=== PATIENT | female | born 1945 | race Caucasian/White ===

== ENCOUNTER 2017-09-12 21:54 | Inpatient (IN) | payer MEDICARE, OTHER, SELFPAY ==
[2017-09-12 21:56] VITALS: BP 118/67; PULSE 105; RESP 20; TEMP 36.6; O2SAT 92; BMI 35.7
--- NOTE | 2017-09-12 22:17 | RAD_ITS ---
STUDY: X-RAY - LEFT FOOT CLINICAL: Female, 72 years old. Swelling and redness. TECHNIQUE: 3 view(s) of the foot. COMPARISON: None. FINDINGS: There is demineralization of the rear and midfoot bones. Demineralized subtalar, talonavicular, calcaneocuboid, tarsal and tarsometatarsal articulations. There is demineralization of the metatarsi. There is degenerative arthrosis of the metatarsophalangeal joint of the hallux with a hallux valgus deformity. Normal tibial and fibular sesamoid bones. There is degenerative arthrosis of the interphalangeal joint of the great toe. Normal phalanges of the great toe. Normal second through fifth metatarsophalangeal joints. Normal interphalangeal joints and phalanges of the lesser toes. The soft tissue structures are unremarkable. RAD/Foot min 3 Views IMPRESSION: Diffuse demineralization with hallux valgus deformity and arthrosis. Electronically Signed: Benjamín Vera DO at 22:53 EDT , Service support ,
--- NOTE | 2017-09-12 22:17 | RAD_ITS ---
STUDY: X-RAY - RIGHT FOOT CLINICAL: Female, 72 years old. Swelling and redness. TECHNIQUE: 3 view(s) of the foot. COMPARISON: None. FINDINGS: There is demineralization of the rear and midfoot bones. Normal visualized subtalar, talonavicular, calcaneocuboid, tarsal and tarsometatarsal articulations. There is demineralization of the metatarsi. There is degenerative arthrosis of the metatarsophalangeal joint of the hallux with a hallux valgus deformity. Normal tibial and fibular sesamoid bones. There is degenerative arthrosis of the interphalangeal joint of the great toe. Demineralized phalanges of the great toe. Normal second through fifth metatarsophalangeal joints. Normal interphalangeal joints and phalanges of the lesser toes. The soft tissue structures are unremarkable. RAD/Foot min 3 Views IMPRESSION: Diffuse demineralization and hallux valgus deformities with no evidence of acute fracture. Electronically Signed: Benjamín Vera DO at 22:55 EDT , Service support ,
[2017-09-12 22:55] LABS: Absolute Lymphocyte Count 2.45 X10^3/ul (0.83-4.51); Absolute Neutrophil Count 6.6 X10^3/uL (2.0-7.7); Basophil# 0.06 X10^3/uL; Basophil% 0.6 % (0-1); Eosinophil# 0.04 X10^3/uL; Eosinophils% 0.4 % (0-5); Hematocrit 38.1 % (37-47); Lymphocyte # 2.45 X10^3/ul (4.0); Mean Corp Hgb Conc 31.5 g/gl (32-36); Mean Corpuscular Hgb 31.7 pg (27.0-32.0); Mean Corpuscular Volume 100.5 fL (81-99); Mean Platelet Vol. 8.6 fl (6.2-12.0); Monocyte# 1.42 X10^3/uL; Monocyte% 13.4 % (0-10); Neutrophil # 6.57 X10^3/uL (2.7-7.7); Neutrophil % 61.8 % (47-70); Platelet Count 367 K/mm3 (150-450); RBC Distribution Width CV 15.1 % (11.6-14.6); Red Blood Count 3.79 M/mm3 (4.2-5.4); White Blood Count 10.6 K/mm3 (4.4-11.0)
[2017-09-12 22:56] LABS: POSITIVE COUNT NO; POSITIVE DIFFERENTIAL NO; POSITIVE MORPHOLOGY NO
[2017-09-12 23:08] LABS: Anion Gap 8 (5-15); BUN 24 mg/dL (7-18); Calcium,Total 7.9 mg/dL (8.5-10.1); Chloride 99 mmol/L (98-107); EST Glomerular Filtration Rate 36 mL/min (>60); Est Glom Filt Rate - Afr Amer 44 mL/min (>60); Estimated Creatinine Clearance 43.05 ml/min; Glucose 97 mg/dL (74-106); Potassium 4.4 mmol/L (3.5-5.1); Sodium Level 141 mmol/L (136-145)
[2017-09-13] VITALS (17 sets, daily range): BP systolic 100–124; BP diastolic 58–74; PULSE 71–111; RESP 16–20; TEMP 36.4–36.9; O2SAT 90–95; BMI 37.1
--- NOTE | 2017-09-13 00:03 | ED.RN ---
PT C/O PAIN AND TOOK HOME TRAMADOL OF 50MG PO. DR. NICHOLE WAS OKAY WITH PT TAKING HOME PAIN MEDICATION.
[2017-09-13] MEDS: 0.9% Normal Saline 1,000 ML 100 ML IV (00:05)
--- NOTE | 2017-09-13 00:09 | ED.DCSUM_ITS ---
- ER Visit Summary Date of Service: 09/13/17 Chief Complaint: Leg edema and redness History of Present Illness: The patient is a 72 F with a history of chronic peripheral vascular disease. She states that she has leg swelling but normally improves with diuretics, but has not been recently. Patient has noted decreased urine output in spite of being on Lasix and Spironolactone. Patient has a large blistered wound on her right foot. Patient states she is to follow up with wound care center in [place] as well as a whiting can worker in [place]. Patient presents tonight with increased pain to her feet, worse with weightbearing. Patient was admitted to in [place] August 09. I was able to review that discharge note. Physical Examination: Vital signs significant only for heart rate of 105. Patient sitting upright in bed. She is alert and talkative. Head neck examination unremarkable. Heart is slightly tachycardic. Lung sounds are slightly diminished at the bases, but overall clear. Abdomen is soft, obese, nontender. Lower extremity examination reveals 2+ edema bilaterally with chronic venous skin changes. There is no significant warmth or sign of acute infection. She has a large, 4 x 6 cm, blister across the dorsum of the right foot. Test Results: CBC and chemistry studies are significant for BUN 24 a creatinine of 1.50. This is compared to a creatinine of 0.88 on August 27. X-rays of both feet were performed. There is diffuse demineralization noted with no evidence of acute fracture. Emergency Department Course and Treatment: Patient took her home dose of tramadol for pain. She is started on gentle IV fluids as it appears she has acute renal insufficiency secondary to overdiuresis. INR will be added at this time, as patient now advises me that she is on Coumadin. She will be admitted for wound care along with podiatry evaluation. Treatment Plan: [] Disposition: Admit Impression: 1. Acute renal insufficiency 2. Right foot wound This note was generated with Eayun dictation software. It may contain incorrect words, spelling, and punctuation that were not noted in review of the chart prior to signing ED Disposition - Plan for ED Patient: Chief Complaint: Edema Referrals: Mkio Navarro MD [Primary Care Provider] -
[2017-09-13 00:34] LABS: International Normalized Ratio 4.9
--- NOTE | 2017-09-13 00:34 | ED.RN ---
LAB CALLED FOR INR RESULT, INR OF 4.9 DR. NICHOLE NOTIFIED FACE TO FACE, NO ORDERS GIVEN.
--- NOTE | 2017-09-13 01:25 | HP.PCM_ITS ---
Problem List (1) Acute kidney injury Status: Acute (2) Venous stasis Status: Acute (3) Wound of right foot Status: Acute (4) Atrial fibrillation Status: Acute (5) CHF (congestive heart failure) Status: Chronic (6) COPD (chronic obstructive pulmonary disease) Status: Chronic History of Present Illness Date of Admission: 09/13/17 Chief Complaint: Right leg swelling. The patient is a 72 year old F with a significant history of COPD, CHF, atrial fibrillation on warfarin therapy, diabetes, and chronic venostasis who presented because of persistent swelling of bilateral legs and wound on her right dorsal foot for the last 1-2 months. Prior to this admission patient had visited two hospitals a [facility] in [place] and [facility]. Patient was scheduled to come to our wound clinic but because of persistent pain and swelling in her bilateral legs she decided to come to the emergency department. Also, patient reports that although she is taking her Lasix and Aldactone, she is not urinating as much as she used to do previously. At emergency department it was noted that the patient had a severe elevation in her creatinine above her baseline. Past Medical History Past Medical History (Chronic Problems): Chronic Problems CHF (congestive heart failure) (Chronic) COPD (chronic obstructive pulmonary disease) (Chronic) Allergies cefaclor [From Ceclor] Allergy (Verified 09/12/17 21:55) Other gentamicin Allergy (Verified 09/12/17 21:55) Rash lorazepam [From Ativan] Allergy (Verified 09/12/17 21:55) Anaphylaxis Home Medications: Ambulatory Orders Medication Instructions Recorded Albuterol Aerosols [Ventolin 2.5 mg INHALATION Q4H PRN PRN 09/12/17 Aerosols] Albuterol IH (ProAir) [Proair Hfa 1 puff INHALATION Q4H PRN PRN 09/12/17 (SP)Vent Pts] Budesonide/Formoterol 160/4.5 2 puff INHALATION BID PRN 09/12/17 [Symbicort 160/4.5 Mcg Inhaler (SP)] Calcium Phos/Vit D3/Mag Oxide 1 each PO DAILY 09/12/17 [Posture-D Caplet] Diltiazem HCl [Diltiazem ER] 240 mg PO DAILY 09/12/17 DiphenhydrAMINE [Benadryl] 25 mg PO BID PRN PRN 09/12/17 Furosemide [Lasix] 40 mg PO BID 09/12/17 Guaifenesin [Mucinex] 1,200 mg PO DAILY 09/12/17 Levothyroxine [Synthroid] 88 mcg PO DAILY 09/12/17 Metformin HCl 500 mg PO DAILY 09/12/17 Metoprolol Tartrate 50 mg PO TID 09/12/17 Omeprazole [Prilosec] 20 mg PO DAILY 09/12/17 Potassium Chloride 20 meq PO BID 09/12/17 Pravastatin [Pravachol] 20 mg PO QHS 09/12/17 Spironolactone 25 mg PO DAILY 09/12/17 Tylenol Arthritis 650 mg PO PRN PRN 09/12/17 traMADol [Ultram (G)] 50 mg PO Q4H PRN PRN 09/12/17 Warfarin [Coumadin ([facility])] 2 mg PO QODAY 09/13/17 Warfarin [Coumadin ([facility])] 4 mg PO QODAY 09/13/17 Smoking Status: Former smoker - *Family History Paternal History Items: COPD Maternal History Items: Heart Disease, Hypertension Review of Systems Constitutional: Denies: Chills, Fever, Weight Change HEENT: Denies: Head Aches, Sinus Congestion, Sinus Drainage Cardiovascular: Denies: Chest Pain, Palpitations Respiratory: Reports: Shortness of Breath Gastrointestinal: Denies: Abdominal Pain, Nausea, Vomiting Genitourinary: Denies: Dysuria Musculoskeletal: Reports: Leg Pain - Bilateral leg pain and foot pain. Skin: Reports: - - Blistered wound on right dorsal foot; redness and swelling of bilateral legs. Neurological: Denies: Numbness, Tingling, Focal weakness Psychiatric: Denies: Anxiety, Depression, Homicidal Ideations, Suicidal Ideations Hematologic/ Lymphatic: Denies: Easy Bruising, Easy Bleeding VTE Information - Inpt Only VTE Present on Admission: No VTE Mechan Device Prophylaxis: None VTE Pharm Prophylaxis ordered?: No Reason prophylaxis not ordered:: Medical Contraindication Patient Problems: Active and Suspected Problems Acute kidney injury (Acute) Venous stasis (Acute) Wound of right foot (Acute) Atrial fibrillation (Acute) - Physical Exam General: Alert, Oriented x3, Cooperative HEENT: Atraumatic, PERRLA, EOMI, Normocephalic Neck: Supple, No JVD, Negative Carotid Bruits Lungs: Diminished, Rhonchi Cardiovascular: Regular rate Abdomen: Bowel Sounds Present, Soft, Non Tender Extremities: Edema - Bilateral lower extremity, Tenderness - Bilateral lower extremity tenderness., - Skin: - - Redness of bilateral lower extremity and blister wound on dorsal aspect of right foot. Musculoskeletal: Tenderness - Bilateral lower extremities. Lymphatic: No Cervical, Supraclavicular, or Inguinal Adenopathy Neurological: Cranial nerves II-XII grossly intact Psych/Mental Status: Appropriate Vital Signs Temp Pulse Resp BP Pulse Ox 97.9 F 71 20 H 120/74 95 09/12/17 21:56 09/13/17 00:05 09/13/17 00:05 09/13/17 00:05 09/13/17 00:05 Oxygen Delivery Method Room Air Weight: 81.647 kg Body Mass Index (BMI) 35.7 Laboratory Tests Past 24 Hrs 09/12/17 09/12/17 09/13/17 22:20 22:29 00:02 WBC 10.6 RBC 3.79 L Hgb 12.0 Hct 38.1 MCV 100.5 H MCH 31.7 MCHC 31.5 L RDW 15.1 H RDW Differential 55.0 H Plt Count 367 MPV 8.6 Immature Gran % (Auto) 0.800 Neut % (Auto) 61.8 Lymph % (Auto) 23.0 [place] % (Auto) 13.4 H Eos % (Auto) 0.4 Baso % (Auto) 0.6 Absolute Neuts (auto) 6.6 Absolute Lymphs (auto) 2.45 Total Counted Not Reportable PT 46.0 H INR 4.9 H* Sodium 141 Potassium 4.4 Chloride 99 Carbon Dioxide 34.0 H Anion Gap 8 BUN 24 H Creatinine 1.50 H Estim Creat Clear Calc 43.05 Est GFR (MDRD) Af Amer 44 L Est GFR (MDRD) Non-Af 36 L BUN/Creatinine Ratio 16.0 Glucose 97 Calcium 7.9 L Assessment/Plan All Active Problems Acute kidney injury (Acute) Venous stasis (Acute) Wound of right foot (Acute) Atrial fibrillation (Acute) The patient is a 72 year old F with a significant history of COPD, CHF, atrial fibrillation on warfarin therapy, diabetes, and chronic venostasis who presented because of persistent swelling of bilateral legs and wound on her right dorsal foot for the last 1-2 months. Bilateral lower extremity swelling Likely this is from venous stasis Diuretics on hold now due to acute kidney injury Kerlix roll and neil wraps to bilateral lower extremity. Elevates bilateral legs. Wound care consult for further recommendations Podiatry consult. XOCHILT Her creatinine on admission was 1.5 Her creatinine on 08/27/2017 was 0.88 Likely this is due to overdiuresis Lasix and spironolactone on hold Gentle fluid hydration. Of note patient reports a history of CHF. Judicial use of fluid recommended. Avoid nephrotoxic. Patient was started on Bactrim outpatient prophylactically to prevent infection of her right foot. Because of her acute kidney injury would discontinue Bactrim at this time; and will not start any antibiotics at this time. Antibiotics not started at this time. Home Ultram dose adjusted because of acute kidney injury. COPD DuoNeb scheduled Albuterol inhalation as needed Mucinex continued. Diabetes mellitus Hold metformin discontinued until it is cleared the patient while inpatient will not need any imaging with diet. Correction scale insulin ordered. A. fib Rate controlled at this time. Placed on telemetry. Patient stated that outpatient INR was elevated (between 5 and 8 ) requiring her Coumadin to be on hold. INR on admission 4.9. Will hold Coumadin at this time. Daily INR. Please restart Coumadin when appropriate. Continue Cardizem and metoprolol. Thromboprophylaxis Not indicated at this time because of supratherapeutic INR. Resume Coumadin when appropriate. This note was prepared with speech recognition software and may be prone to errors in eye dropper assembler. Code Visit Inpatient E&M: 74091 Init Hosp L2
--- NOTE | 2017-09-13 01:33 | NURSING ---
Eulalio sanderson aware pt ok for floor.
[2017-09-13 03:16] LABS: Bedside Glucose 83 mg/dL (70-110)
[2017-09-13] MEDS: traMADol 50 MG Tablet PO ×2 (05:36→14:17)
[2017-09-13] MEDS: Levothyroxine 88 MCG Tablet PO (05:37)
[2017-09-13] MEDS: Metoprolol Tartrate 50 MG Tablet PO ×3 (05:39→22:07)
[2017-09-13 06:02] LABS: Anion Gap 6 (5-15); BUN 23 mg/dL (7-18); BUN/Creat Ratio 19.8 RATIO (10-20); Calcium,Total 7.6 mg/dL (8.5-10.1); Chloride 102 mmol/L (98-107); Creatinine, Serum 1.16 mg/dL (0.55-1.02); EST Glomerular Filtration Rate 49 mL/min (>60); Est Glom Filt Rate - Afr Amer 59 mL/min (>60); Estimated Creatinine Clearance 56.87 ml/min; Glucose 80 mg/dL (74-106); Potassium 4.3 mmol/L (3.5-5.1); Sodium Level 141 mmol/L (136-145)
[2017-09-13 06:56] LABS: Bedside Glucose 79 mg/dL (70-110)
[2017-09-13] MEDS: Budesonide Respules 0.5 MG/2 ML AMPUL.NEB. INHALATION ×2 (06:57→20:35)
[2017-09-13] MEDS: Ipratropium/Albuterol Sulfate 3 ML AMPUL.NEB INHALATION ×3 (06:57→20:35)
[2017-09-13] MEDS: Acetaminophen 325 MG Tablet 650 MG PO ×2 (08:58→17:29)
[2017-09-13] MEDS: 0.9% Normal Saline 1,000 ML 75 ML IV (09:01)
--- NOTE | 2017-09-13 09:15 | CASEMGMT ---
RN MAMADOU Note: Nurse notified CM that pt did not wish to take medications provided by hospital as they will not be covered. RN MAMADOU called to [facility], spoke w/Michelle. Verified as Inpt, medications provided in hospital were covered. BRETT CEDILLO explained to patient and she is agreeable not to take her own medications. Wilfred CARBONE RN ACM
[2017-09-13] MEDS: Glucerna Shake 120 ML LIQUID PO ×3 (11:14→22:08)
[2017-09-13] MEDS: dilTIAZem CD 240 MG Capsule PO (11:14)
[2017-09-13] MEDS: Pantoprazole Sodium 20 MG Tablet PO (11:14)
[2017-09-13 11:21] LABS: Bedside Glucose 118 mg/dL (70-110)
[2017-09-13] MEDS: guaiFENesin 1,200 MG Tablet 1200 MG PO (12:39)
[2017-09-13] MEDS: Calcium Carb/Vitamin D 1 TABLET Tablet PO (12:39)
--- NOTE | 2017-09-13 13:28 | PCM.PROGNOTE ---
Patient Problems: Active and Suspected Problems Acute kidney injury (Acute) Venous stasis (Acute) Wound of right foot (Acute) Atrial fibrillation (Acute) Ulcer of right foot with fat layer exposed (Acute) PVD (peripheral vascular disease) (Acute) DM (diabetes mellitus) with complications (Acute) Subjective: This 72-year-old female was consulted to podiatry after being admitted through the ER last evening for pain and some redness to the right lower extremity and blister to the right dorsal foot. Patient was resting comfortably bedside this afternoon with daughter in the room. Patient said she had no issues throughout the evening and is feeling much better today in the area to her lower extremity is not painful any longer. She relates that the blister to the right dorsal foot was being treated by her primary care doctor. She says the area his been getting smaller over the course of the last month or so. She says her primary care suggested recently that she follow-up with either the wound healing center or a inspector general in [place]. She says that her primary care doctor had her on oral Bactrim prior to admission. She has not done much else treatment danielle other than trying to keep her legs wrapped with Truman bandages. Currently patient denies any feeling of nausea, vomiting, fever, chills. Patient again states that she is feeling well and that she also has an appetite currently. - Physical Exam General: Alert, Oriented x3, Cooperative, No apparent distress Extremities: No cyanosis, No Calf Tenderness - Negative Emily and Arguello sign bilateral, Diminished Peripheral Pulses - DP and PT pulses nonpalpable, Edema - Bilateral pitting lower extremity edema, - - Capillary refill time is less than 5 seconds to distal digits of the right and left foot. Skin: Ulcer/ Wound - Blister appreciated to dorsomedial right foot. Upon manual manipulation, the roof of the blister easily lifted completely off exposing a bite of healthy granular tissue. This is a very superficial ulcer in depth. Area measures approximately 6cm x 5cm. Very minor surrounding erythema noted. No surrounding or extending cellulitis, no areas of deep probing, tracking, or undermining. No purulence. Slight serous drainage noted. Base is majority granular with some slight areas of slough. No signs of acute bacterial infection currently appreciated. Musculoskeletal: Arthritic Changes, Tenderness - Slight tenerness with manipulation of ulcer site, - - Bilateral hallux valgus deformities. Bilateral fixed dorsally contracted digits 2-5 bilateral. Neurological: Sensory exam intact to light touch and pain Psych/Mental Status: Normal Affect, Appropriate Vital Signs Temp Pulse Resp BP Pulse Ox 98.0 F 103 H 18 107/67 94 09/13/17 08:45 09/13/17 08:45 09/13/17 08:45 09/13/17 08:45 09/13/17 08:45 Oxygen Delivery Method Room Air Weight: 83.4 kg Body Mass Index (BMI) 37.1 Intake and Output for Last 24 Hours 09/11/17 09/12/17 09/13/17 23:59 23:59 23:59 Intake Total 270 / 270 Balance 270 / 270 Microbiology Past 72 Hours 09/13/17 11:08 Group A Streptococcus Rapid Screen - Preliminary Mucosa - Throat Laboratory Tests Past 24 Hrs 09/13/17 05:22 Sodium 141 Potassium 4.3 Chloride 102 Carbon Dioxide 33.0 H Anion Gap 6 BUN 23 H Creatinine 1.16 H Estim Creat Clear Calc 56.87 Est GFR (MDRD) Af Amer 59 L Est GFR (MDRD) Non-Af 49 L BUN/Creatinine Ratio 19.8 Glucose 80 Calcium 7.6 L POC Glucose 09/13/17 09/13/17 09/13/17 11:11 06:45 02:54 POC Glucose 118 H 79 83 Medical Necessity - Tobacco Use Smoking Status: Former smoker Assessment/Plan All Active Problems Acute kidney injury (Acute) Venous stasis (Acute) Wound of right foot (Acute) Atrial fibrillation (Acute) Ulcer of right foot with fat layer exposed (Acute) PVD (peripheral vascular disease) (Acute) DM (diabetes mellitus) with complications (Acute) Superficial ulcer dorsal right foot (underlying previous blister) PVD Venous insufficiency DM Other comorbidities Patient was carefully examined and evaluated in detail with daughter in the room. Patients vital signs are currently stable. Last WBC was 10.6. Blood cultures still pending. No wound cultures taken to date. Discussed the case with Dr. Dickey who anticipates patient's discharge at some point tomorrow. She believes due to the patient's clinical appearance as well as vital signs, that no antibiotics are currently warranted. The previous blister was manually deroofed without much pressure applied at all. No bleeding noted. Once complete, the area was carefully cleansed, and then dressed with aquacel ag to the base, followed by 4x4s, ABD over anterior ankle, kerlix, and an TRUMAN bandage. This dressing is to be changed daily in this manner. I spoke with Anna Harrell in the room who told the patient and her daughter that these dressing supplies would be ordered for them upon discharge. The patient already has an appointment at the wound healing center next . She was instructed to keep this appointment. Podiatry will continue to follow this patient as needed while still in house. Please contact with any questions or concerns.
--- NOTE | 2017-09-13 13:39 | PN_ITS ---
Patient Problems: Active and Suspected Problems Acute kidney injury (Acute) Venous stasis (Acute) Wound of right foot (Acute) Atrial fibrillation (Acute) Ulcer of right foot with fat layer exposed (Acute) PVD (peripheral vascular disease) (Acute) DM (diabetes mellitus) with complications (Acute) Subjective: This 72-year-old female was consulted to podiatry after being admitted through the ER last evening for pain and some redness to the right lower extremity and blister to the right dorsal foot. Patient was resting comfortably bedside this afternoon with daughter in the room. Patient said she had no issues throughout the evening and is feeling much better today in the area to her lower extremity is not painful any longer. She relates that the blister to the right dorsal foot was being treated by her primary care doctor. She says the area his been getting smaller over the course of the last month or so. She says her primary care suggested recently that she follow-up with either the wound healing center or a finisher map and chart in [place]. She says that her primary care doctor had her on oral Bactrim prior to admission. She has not done much else treatment danielle other than trying to keep her legs wrapped with Truman bandages. Currently patient denies any feeling of nausea, vomiting, fever, chills. Patient again states that she is feeling well and that she also has an appetite currently. - Physical Exam General: Alert, Oriented x3, Cooperative, No apparent distress Extremities: No cyanosis, No Calf Tenderness - Negative Emily and Arguello sign bilateral, Diminished Peripheral Pulses - DP and PT pulses nonpalpable, Edema - Bilateral pitting lower extremity edema, - - Capillary refill time is less than 5 seconds to distal digits of the right and left foot. Skin: Ulcer/ Wound - Blister appreciated to dorsomedial right foot. Upon manual manipulation, the roof of the blister easily lifted completely off exposing a bite of healthy granular tissue. This is a very superficial ulcer in depth. Area measures approximately 6cm x 5cm. Very minor surrounding erythema noted. No surrounding or extending cellulitis, no areas of deep probing , tracking, or undermining. No purulence. Slight serous drainage noted. Base is majority granular with some slight areas of slough. No signs of acute bacterial infection currently appreciated. Musculoskeletal: Arthritic Changes, Tenderness - Slight tenerness with manipulation of ulcer site, - - Bilateral hallux valgus deformities. Bilateral fixed dorsally contracted digits 2-5 bilateral. Neurological: Sensory exam intact to light touch and pain Psych/Mental Status: Normal Affect, Appropriate Vital Signs Temp Pulse Resp BP Pulse Ox 98.0 F 103 H 18 107/67 94 09/13/17 08:45 09/13/17 08:45 09/13/17 08:45 09/13/17 08:45 09/13/17 08:45 Oxygen Delivery Method Room Air Weight: 83.4 kg Body Mass Index (BMI) 37.1 Intake and Output for Last 24 Hours 09/11/17 09/12/17 09/13/17 23:59 23:59 23:59 Intake Total 270 / 270 Balance 270 / 270 Microbiology Past 72 Hours 09/13/17 11:08 Group A Streptococcus Rapid Screen - Preliminary Mucosa - Throat Laboratory Tests Past 24 Hrs 09/13/17 05:22 Sodium 141 Potassium 4.3 Chloride 102 Carbon Dioxide 33.0 H Anion Gap 6 BUN 23 H Creatinine 1.16 H Estim Creat Clear Calc 56.87 Est GFR (MDRD) Af Amer 59 L Est GFR (MDRD) Non-Af 49 L BUN/Creatinine Ratio 19.8 Glucose 80 Calcium 7.6 L POC Glucose 09/13/17 09/13/17 09/13/17 11:11 06:45 02:54 POC Glucose 118 H 79 83 Medical Necessity - Tobacco Use Smoking Status: Former smoker Assessment/Plan All Active Problems Acute kidney injury (Acute) Venous stasis (Acute) Wound of right foot (Acute) Atrial fibrillation (Acute) Ulcer of right foot with fat layer exposed (Acute) PVD (peripheral vascular disease) (Acute) DM (diabetes mellitus) with complications (Acute) Superficial ulcer dorsal right foot (underlying previous blister) PVD Venous insufficiency DM Other comorbidities Patient was carefully examined and evaluated in detail with daughter in the room. Patients vital signs are currently stable. Last WBC was 10.6. Blood cultures still pending. No wound cultures taken to date. Discussed the case with Dr. Dickey who anticipates patient's discharge at some point tomorrow. She believes due to the patient's clinical appearance as well as vital signs, that no antibiotics are currently warranted. The previous blister was manually deroofed without much pressure applied at all. No bleeding noted. Once complete , the area was carefully cleansed, and then dressed with aquacel ag to the base , followed by 4x4s, ABD over anterior ankle, kerlix, and an TRUMAN bandage. This dressing is to be changed daily in this manner. I spoke with Anna Harrell in the room who told the patient and her daughter that these dressing supplies would be ordered for them upon discharge. The patient already has an appointment at the wound healing center next . She was instructed to keep this appointment. Podiatry will continue to follow this patient as needed while still in house. Please contact with any questions or concerns.
--- NOTE | 2017-09-13 13:39 | NURSING ---
wound photo: right foot
--- NOTE | 2017-09-13 13:40 | NURSING ---
wound photo: right knee
--- NOTE | 2017-09-13 13:40 | NURSING ---
wound photo: left leg
--- NOTE | 2017-09-13 13:56 | PCM.PROGNOTE ---
<Tra Arias - Last Filed: 09/13/17 13:56> Patient Problems: Active and Suspected Problems DM (diabetes mellitus) with complications (Acute) Acute kidney injury (Acute) Venous stasis (Acute) Wound of right foot (Acute) Atrial fibrillation (Acute) Ulcer of right foot with fat layer exposed (Acute) PVD (peripheral vascular disease) (Acute) Subjective: Pt resting comfortably in bed no acute issues. Legs are down. Edema is unchanged. IV fluids running, lasix held. No SOB. Her primary complaint to me is her sore throat and productive cough - yellow green mucus. No fever or chills. - Physical Exam General: Alert, Oriented x3, Cooperative HEENT: Atraumatic, PERRLA, EOMI, Normocephalic Oral: - - soft palate exudates. Neck: Supple, No JVD, Negative Carotid Bruits Lungs: Rales Cardiovascular: Regular rate, No murmurs Abdomen: Bowel Sounds Present, Soft, Non Tender Extremities: Capillary Refill Less than 3 Seconds, Edema - 1+ pitting Skin: No rashes, No breakdown Musculoskeletal: No Tenderness to Palpation of Joints or Extremities Neurological: Cranial nerves II-XII grossly intact Psych/Mental Status: Normal Affect, Appropriate, Alert and oriented to time, place, person, mood and affect Vital Signs Temp Pulse Resp BP Pulse Ox 98.0 F 100 18 107/67 94 09/13/17 08:45 09/13/17 11:01 09/13/17 08:45 09/13/17 08:45 09/13/17 08:45 Oxygen Delivery Method Room Air Weight: 183 lb 13.848 oz Body Mass Index (BMI) 37.1 Intake and Output for Last 24 Hours 09/11/17 09/12/17 09/13/17 23:59 23:59 23:59 Intake Total 1158 / 1158 Balance 1158 / 1158 Microbiology Past 72 Hours 09/13/17 11:08 Group A Streptococcus Rapid Screen - Preliminary Mucosa - Throat Laboratory Tests Past 24 Hrs 09/13/17 05:22 Sodium 141 Potassium 4.3 Chloride 102 Carbon Dioxide 33.0 H Anion Gap 6 BUN 23 H Creatinine 1.16 H Estim Creat Clear Calc 56.87 Est GFR (MDRD) Af Amer 59 L Est GFR (MDRD) Non-Af 49 L BUN/Creatinine Ratio 19.8 Glucose 80 Calcium 7.6 L POC Glucose 09/13/17 09/13/17 09/13/17 11:11 06:45 02:54 POC Glucose 118 H 79 83 Medical Necessity - Tobacco Use Smoking Status: Former smoker Assessment/Plan All Active Problems DM (diabetes mellitus) with complications (Acute) Acute kidney injury (Acute) Venous stasis (Acute) Wound of right foot (Acute) Atrial fibrillation (Acute) Ulcer of right foot with fat layer exposed (Acute) PVD (peripheral vascular disease) (Acute) 1. BL LE swelling - chronic venous stasis. Podiatry following. Blister deroofed with new skin growth underneath. Continue compression, elevate legs at rest. Restart lasix tomorrow if renal function ok. Follow up with wound center. Do not suspect infectious etiology. 2. Sore throat + productive cough + exudates. Start amoxicillin. Obtain rapid strep/throat culture. Rales on exam - check CXR. 3. COPD - not sob. PRN aerosols. 4. DMt2 - titrate insulin therapy. 5. Afib - rate controlled. Coumadin held for INR 4.9. trend. DVT ppx: warfarin held as above DC planning: Home tomorrow if renal function improved. This patient was seen by Tra Arias PA-C under the supervision of Doctor Keli. <Celina Dickey - Last Filed: 09/13/17 16:14> - Physical Exam Vital Signs Temp Pulse Resp BP Pulse Ox 98.0 F 92 18 108/64 94 09/13/17 08:45 09/13/17 15:35 09/13/17 15:35 09/13/17 14:17 09/13/17 08:45 Oxygen Delivery Method Room Air Weight: 83.4 kg Body Mass Index (BMI) 37.1 Intake and Output for Last 24 Hours 09/11/17 09/12/17 09/13/17 23:59 23:59 23:59 Intake Total 1158 / 1158 Balance 1158 / 1158 Microbiology Past 72 Hours 09/13/17 11:08 Group A Streptococcus Rapid Screen - Preliminary Mucosa - Throat Laboratory Tests Past 24 Hrs 09/13/17 05:22 Sodium 141 Potassium 4.3 Chloride 102 Carbon Dioxide 33.0 H Anion Gap 6 BUN 23 H Creatinine 1.16 H Estim Creat Clear Calc 56.87 Est GFR (MDRD) Af Amer 59 L Est GFR (MDRD) Non-Af 49 L BUN/Creatinine Ratio 19.8 Glucose 80 Calcium 7.6 L POC Glucose 09/13/17 09/13/17 09/13/17 11:11 06:45 02:54 POC Glucose 118 H 79 83 Assessment/Plan Patient was seen and examined. Agree with the interval history, physical exam, assessment and plan as documented by physician assistant news director, Tra Arias. She feels much improved. Denies any chest pain no dizziness or shortness of breath. Discussed patient's wound with wound nurse and health type technician, skin of blister was deroofed; pink tissue underneath. No signs of infection. No need for antibiotics. Labs and meds reviewed -Serum creatinine has improved with hydration Patient's acute kidney injury has improved with IV fluids, will continue to monitor and repeat labs in the morning. Code Visit Inpatient E&M: 65754 Subs Hosp L2
--- NOTE | 2017-09-13 13:57 | RAD_ITS ---
STUDY: X-RAY CHEST REASON FOR EXAM: Female, 72 years old. Productive cough TECHNIQUE: PA and lateral views of the chest. COMPARISON: None. FINDINGS: EKG leads overlie the chest Lungs are hyperexpanded without a superimposed acute pulmonary process. There is no demonstrated pleural abnormality. Normal size heart. Normal mediastinum and dar. Normal visualized pulmonary arteries. There is atherosclerotic calcification of the aortic arch with tortuosity. There are diffuse degenerative changes of the visualized thoracic spine. There is degenerative osteoarthritis of the bilateral shoulders. There is no demonstrated abnormality of the visualized soft tissue structures of the upper abdomen. RAD/Chest PA and Lateral IMPRESSION: Hyperexpanded lungs with chronic interstitial changes, no superimposed acute pulmonary process Electronically Signed: Serafin Thibodeaux MD at 14:55 EDT , Service support ,
--- NOTE | 2017-09-13 15:16 | CASEMGMT ---
SEE BRETT CEDILLO ASSESS LINK: D/C PLAN: RETURN HOME WITH [facility]. Intro role to BRETT CEDILLO. Pt sitting up in recliner in room. Alert/oriented and willing to participate in assess and answer all questions appropriately. Daughter, Gwen, also in room as well as a couple other family members. Gwen states pt has been receiving [facility] Nursing and OT through [facility] agency. BRETT CEDILLO called to [facility] Agency Intake office in [place] @ [phone] and they confirmed pt is receiving Skilled nsg services and PT/OT. They were made aware pt is currently @ [facility] with anticipated plan for discharge tomorrow 09/14. Clinical information and resume order faxed to . Pt voiced would like to get a Medical Alert Button. Provided List of Phone numbers for Medical Alert Systems. Patti CARBONE RN, CM
[2017-09-13 17:30] LABS: Bedside Glucose 156 mg/dL (70-110)
[2017-09-13] MEDS: Insulin Lispro 100 UNIT/ML INSULN.PEN SQ (17:30)
[2017-09-13] MEDS: Bisacodyl 5 MG Tablet PO (20:46)
[2017-09-13] MEDS: Pravastatin 20 MG Tablet PO (22:07)
[2017-09-13] MEDS: AMOXICILLIN 500 MG CAPSULE PO (22:07)
[2017-09-13 22:15] LABS: Bedside Glucose 130 mg/dL (70-110)
[2017-09-14] VITALS (11 sets, daily range): BP systolic 99–122; BP diastolic 40–61; PULSE 82–99; RESP 16–18; TEMP 36.7–36.8; O2SAT 91–97
[2017-09-14] MEDS: Levothyroxine 88 MCG Tablet PO (05:48)
[2017-09-14] MEDS: Metoprolol Tartrate 50 MG Tablet PO ×2 (05:49→13:58)
[2017-09-14] MEDS: Acetaminophen 325 MG Tablet 650 MG PO ×2 (05:49→12:53)
[2017-09-14 06:33] LABS: International Normalized Ratio 3.3; Prothrombin Time (Protime)PT. 34.1 SECONDS (11.7-14.9)
[2017-09-14 06:46] LABS: Anion Gap 8 (5-15); BUN 19 mg/dL (7-18); BUN/Creat Ratio 21.3 RATIO (10-20); Chloride 103 mmol/L (98-107); Creatinine, Serum 0.89 mg/dL (0.55-1.02); EST Glomerular Filtration Rate 66 mL/min (>60); Est Glom Filt Rate - Afr Amer 80 mL/min (>60); Estimated Creatinine Clearance 74.12 ml/min; Glucose 88 mg/dL (74-106); Potassium 4.5 mmol/L (3.5-5.1); Sodium Level 141 mmol/L (136-145)
[2017-09-14 06:56] LABS: Bedside Glucose 78 mg/dL (70-110)
[2017-09-14] MEDS: Ipratropium/Albuterol Sulfate 3 ML AMPUL.NEB INHALATION (07:11)
[2017-09-14] MEDS: Budesonide Respules 0.5 MG/2 ML AMPUL.NEB. INHALATION (07:11)
[2017-09-14] MEDS: Calcium Carb/Vitamin D 1 TABLET Tablet PO (08:41)
[2017-09-14] MEDS: guaiFENesin 1,200 MG Tablet 1200 MG PO (08:41)
[2017-09-14] MEDS: Pantoprazole Sodium 20 MG Tablet PO (08:42)
[2017-09-14] MEDS: AMOXICILLIN 500 MG CAPSULE PO (08:42)
[2017-09-14] MEDS: dilTIAZem CD 240 MG Capsule PO (08:42)
[2017-09-14 11:11] LABS: Bedside Glucose 90 mg/dL (70-110)
[2017-09-14] MEDS: traMADol 50 MG Tablet PO (11:11)
--- NOTE | 2017-09-14 11:21 | CASEMGMT ---
BRETT CEDILLO NOTE: Call placed to [facility] @ [phone] and they were notified pt discharging today. Will fax D/C paperwork to [phone] when it is available. Call placed to [facility] and Script for Rollator faxed to [phone]. [employer] notified pt discharging today. Awaiting call back with Insurance approval. Patti CARBONE RN CM
--- NOTE | 2017-09-14 11:45 | DCINST_ITS ---
- Discharge Diagnoses Current Active Problems: Current Active and Chronic Problems DM (diabetes mellitus) with complications (Acute) Acute kidney injury (Acute) Venous stasis (Acute) Wound of right foot (Acute) Atrial fibrillation (Acute) CHF (congestive heart failure) (Chronic) COPD (chronic obstructive pulmonary disease) (Chronic) Ulcer of right foot with fat layer exposed (Acute) PVD (peripheral vascular disease) (Acute) You will use the following diet at home:: Calorie/Carbohydrate Controlled ( specify 1200, 1400, etc) - 1800 bruno / day, Cardiac - <2 g sodium daily Your food should be the consistency of: Regular Your liquids should be the consistency of: Regular/Thin Discharge Activity: Return to Normal Activity Call your doctor if your incision/area has: - - as directed by nursing/podiatry Additional Dressing/Incision Instructions:: elevate legs at rest. Compression socks or neil wraps to leg for swelling daily Allergies/Adverse Reactions: Allergies cefaclor [From Ceclor] Allergy (Verified 09/12/17 21:55) Other gentamicin Allergy (Verified 09/12/17 21:55) Rash lorazepam [From Ativan] Allergy (Verified 09/12/17 21:55) Anaphylaxis Medications to take at Discharge Albuterol Aerosols [Ventolin Aerosols] 2.5 mg INHALATION Q4H PRN PRN 09/12/17 Albuterol IH (ProAir) [Proair Hfa] 1 puff INHALATION Q4H PRN PRN 09/12/17 Budesonide/Formoterol 160/4.5 [Symbicort 160/4.5 Mcg Inhaler (SP)] 2 puff INHALATION BID PRN 09/12/17 Calcium Phos/Vit D3/Mag Oxide [Posture-D Caplet] 1 each PO DAILY 09/12/17 Diltiazem HCl [Diltiazem ER] 240 mg PO DAILY 09/12/17 DiphenhydrAMINE [Benadryl] 25 mg PO BID PRN PRN 09/12/17 Furosemide [Lasix] 40 mg PO BID 09/12/17 Guaifenesin [Mucinex] 1,200 mg PO DAILY 09/12/17 Levothyroxine [Synthroid] 88 mcg PO DAILY 09/12/17 Metformin HCl 500 mg PO DAILY 09/12/17 Metoprolol Tartrate 50 mg PO TID 09/12/17 Omeprazole [Prilosec] 20 mg PO DAILY 09/12/17 Potassium Chloride 20 meq PO BID 09/12/17 Pravastatin [Pravachol] 20 mg PO QHS 09/12/17 Spironolactone 25 mg PO DAILY 09/12/17 Tylenol Arthritis 650 mg PO PRN PRN 09/12/17 traMADol [Ultram] 50 mg PO Q4H PRN PRN 09/12/17 Warfarin [Coumadin] 2 mg PO QODAY #0 09/14/17 Warfarin [Coumadin] 4 mg PO QODAY #0 09/14/17 Primary Care Physician: Miko Navarro MD [Primary Care Provider] - Please follow up with your Primary Care Physician in: 2 weeks Test Results: Test results from this visit will be discussed in further detail at your follow- up appointment, if applicable. Please Follow Up With: Miko Macias DPM - Wound care center When: 1 week Proposed Discharge Date: 09/14/17
--- NOTE | 2017-09-14 11:55 | CASEMGMT ---
BRETT CEDILLO NOTE: Call received from Gloria @ [facility]. Gloria reported she spoke with pt re: her [id number] cost for Rollator and states that pt has declined a Rollator at this time. Patti CARBONE RN CM
--- NOTE | 2017-09-14 12:48 | CASEMGMT ---
BRETT CEDILLO NOTE: Received new fax # [facility] Discharge instructions, Lab requisitions, and Wound Care instructions faxed to [phone]. Patti CARBONE RN CM
--- NOTE | 2017-09-14 13:47 | PCM.DC.SUM ---
<Tra Arias - Last Filed: 09/14/17 13:47> Discharge Date and Diagnosis - Problem List Patient Problems: Active and Suspected Problems DM (diabetes mellitus) with complications (Acute) Ulcer of right foot with fat layer exposed (Acute) PVD (peripheral vascular disease) (Acute) Date of Admission: 09/13/17 Date of Discharge: 09/14/17 - Primary Discharge Diagnosis Active and Suspected Problems XOCHILT suspect 2/2 bactrim chronic venous stasis DMt2 Chronic LE nonhealing wounds, not acutely infected COPD with mild acute exacerbation DMt2 Afib rate controlled Supratherapeutic INR Thrush - Secondary Discharge Diagnosis Chronic Problems CHF (congestive heart failure) (Chronic) COPD (chronic obstructive pulmonary disease) (Chronic) Hospital Course and Treatment Imaging Results: RAD/Foot min 3 Views IMPRESSION: Diffuse demineralization with hallux valgus deformity and arthrosis. RAD/Foot min 3 Views IMPRESSION: Diffuse demineralization and hallux valgus deformities with no evidence of acute fracture. Consultations [facility] podiatry 09/13/17 01:54 Consult: Onc/Wound/treating engineer Routine Comment: Reason for Consult:: Left foot wound Operations: None Procedures: None Summary of Care Provided: Physical exam on day of discharge: General: Resting comfortably NAD Psych: A/Ox3 normal affect HEENT: PEARRLA AT NC Neck: Supple NT CV: RRR no m/t/r/g/h Resp: CTA Abd: [id number] Soft NT no guarding or rigidity Ext: DP2+= no edema Skin: W/D normal turgor Lymph/Heme: No active bleeding or adenopathy Neuro: CN2-12 intact Hospital Course: The patient is a 72 year old F with a hx of chronic venous stasis, LE wounds, DMt2, COPD, chronic afib, who presented to the ER with increased Right leg swelling. She had been treated for nonhealing LE wounds on the legs and right foot dorsum most recently with bactrim. She had increased swelling on chronic swelling 2/2 venous stasis. She had been taking 80 mg lasix each AM for the swelling. She was found to be in XOCHILT. She did not appear to have an acute infectious process with no fever, leukocytosis, or infectious appearing process in the wounds. Podiatry was consulted and she was admitted to the [facility]. She was treated with IV fluids, discontinuing the lasix and bactrim, compression, elevation, and wound care via nursing and podiatry. Her renal function gradually improved and she did not experience worsening edema with the fluid administration. She complained of throat pain and had some exudates on her soft palate. She appeared to have thrush. She tested negative for strep and had a normal CXR. She was treated with nystatin PO. She had some wheezing the last day of admission and was given a short course of prednisone and advised to continue her home aerosol therapy for a mild COPD exacerbation. She did not require O2. She will resume lasix instead at 40 BID. No further abx at this time. She likely has EFREN and has an outpatient sleep study planned - she will need to follow through with this. She was discharged home ins table condition and will need f/u with her PCP, Dr. Macias in the wound center, and she will go home with continuation of home health care. Orders were placed/Rx written for wound care for [facility] to follow. Please assess INR and restart coumadin when it trends down to a therapeutic level. Please check a BMP in 3-5 days. This patient was seen by Tra Arias PA-C under the supervision of Doctor Dickey. [] Discharge Activity: Return to Normal Activity Call your doctor if your incision/area has: - - as directed by nursing/podiatry Additional Dressing/Incision Instructions:: elevate legs at rest. Compression socks or neil wraps to leg for swelling daily Home Medications: Medications to take at Discharge Albuterol Aerosols [Ventolin Aerosols] 2.5 mg INHALATION Q4H PRN PRN 09/12/17 Albuterol IH (ProAir) [Proair Hfa] 1 puff INHALATION Q4H PRN PRN 09/12/17 Budesonide/Formoterol 160/4.5 [Symbicort 160/4.5 Mcg Inhaler (SP)] 2 puff INHALATION BID PRN 09/12/17 Calcium Phos/Vit D3/Mag Oxide [Posture-D Caplet] 1 each PO DAILY 09/12/17 Diltiazem HCl [Diltiazem ER] 240 mg PO DAILY 09/12/17 DiphenhydrAMINE [Benadryl] 25 mg PO BID PRN PRN 09/12/17 Furosemide [Lasix] 40 mg PO BID 09/12/17 Guaifenesin [Mucinex] 1,200 mg PO DAILY 09/12/17 Levothyroxine [Synthroid] 88 mcg PO DAILY 09/12/17 Metformin HCl 500 mg PO DAILY 09/12/17 Metoprolol Tartrate 50 mg PO TID 09/12/17 Omeprazole [Prilosec] 20 mg PO DAILY 09/12/17 Potassium Chloride 20 meq PO BID 09/12/17 Pravastatin [Pravachol] 20 mg PO QHS 09/12/17 Spironolactone 25 mg PO DAILY 09/12/17 Tylenol Arthritis 650 mg PO PRN PRN 09/12/17 traMADol [Ultram] 50 mg PO Q4H PRN PRN 09/12/17 Nystatin 500,000 unit PO 4X/DAY #1 bottle 09/14/17 Prednisone 40 mg PO DAILY #10 tab 09/14/17 Warfarin [Coumadin] 2 mg PO QODAY #0 09/14/17 Warfarin [Coumadin] 4 mg PO QODAY #0 09/14/17 Following Prescrptions Were Given to Patient: Nystatin 500,000 unit PO 4X/DAY #1 bottle Prednisone 40 mg PO DAILY #10 tab Primary Care Physician: Miko Navarro MD [Primary Care Provider] - Please follow up with your Primary Care Physician in: 2 weeks Please Follow Up With: Miko Macias DPM When: 1 week Please Follow Up With: Miko Navarro MD Disposition: Home with Home Health Minutes spent on discharge:: 40 Patient Condition:: Stable Medical Necessity - Tobacco Use Smoking Status: Former smoker Meaningful Use Info Meaningful Use Diagnoses (Choose all that apply): None applicable <Paintsil,[place] - Last Filed: 09/15/17 14:20> Discharge Date and Diagnosis - Primary Discharge Diagnosis Active and Suspected Problems DM (diabetes mellitus) with complications (Acute) Ulcer of right foot with fat layer exposed (Acute) PVD (peripheral vascular disease) (Acute) - Secondary Discharge Diagnosis Chronic Problems CHF (congestive heart failure) (Chronic) COPD (chronic obstructive pulmonary disease) (Chronic) Hospital Course and Treatment Consultations 09/13/17 01:54 Consult: Onc/Wound/treating engineer Routine Comment: Reason for Consult:: Left foot wound Summary of Care Provided: The patient is a 72 year old F [] Code Visit Inpatient E&M: 08600 Disch Hosp
--- NOTE | 2017-09-14 13:56 | DS.PCM_ITS ---
<Tra Arias - Last Filed: 09/14/17 13:47> Discharge Date and Diagnosis - Problem List Patient Problems: Active and Suspected Problems DM (diabetes mellitus) with complications (Acute) Ulcer of right foot with fat layer exposed (Acute) PVD (peripheral vascular disease) (Acute) Date of Admission: 09/13/17 Date of Discharge: 09/14/17 - Primary Discharge Diagnosis Active and Suspected Problems XOCHILT suspect 2/2 bactrim chronic venous stasis DMt2 Chronic LE nonhealing wounds, not acutely infected COPD with mild acute exacerbation DMt2 Afib rate controlled Supratherapeutic INR Thrush - Secondary Discharge Diagnosis Chronic Problems CHF (congestive heart failure) (Chronic) COPD (chronic obstructive pulmonary disease) (Chronic) Hospital Course and Treatment Imaging Results: RAD/Foot min 3 Views IMPRESSION: Diffuse demineralization with hallux valgus deformity and arthrosis. RAD/Foot min 3 Views IMPRESSION: Diffuse demineralization and hallux valgus deformities with no evidence of acute fracture. Consultations [facility] podiatry 09/13/17 01:54 Consult: Onc/Wound/neon sign maker Routine Comment: Reason for Consult:: Left foot wound Operations: None Procedures: None Summary of Care Provided: Physical exam on day of discharge: General: Resting comfortably NAD Psych: A/Ox3 normal affect HEENT: PEARRLA AT NC Neck: Supple NT CV: RRR no m/t/r/g/h Resp: CTA Abd: [id number] Soft NT no guarding or rigidity Ext: DP2+= no edema Skin: W/D normal turgor Lymph/Heme: No active bleeding or adenopathy Neuro: CN2-12 intact Hospital Course: The patient is a 72 year old F with a hx of chronic venous stasis, LE wounds, DMt2, COPD, chronic afib, who presented to the ER with increased Right leg swelling. She had been treated for nonhealing LE wounds on the legs and right foot dorsum most recently with bactrim. She had increased swelling on chronic swelling 2/2 venous stasis. She had been taking 80 mg lasix each AM for the swelling. She was found to be in XOCHILT. She did not appear to have an acute infectious process with no fever, leukocytosis, or infectious appearing process in the wounds. Podiatry was consulted and she was admitted to the [facility]. She was treated with IV fluids, discontinuing the lasix and bactrim, compression, elevation, and wound care via nursing and podiatry. Her renal function gradually improved and she did not experience worsening edema with the fluid administration. She complained of throat pain and had some exudates on her soft palate. She appeared to have thrush. She tested negative for strep and had a normal CXR. She was treated with nystatin PO. She had some wheezing the last day of admission and was given a short course of prednisone and advised to continue her home aerosol therapy for a mild COPD exacerbation. She did not require O2. She will resume lasix instead at 40 BID. No further abx at this time. She likely has EFREN and has an outpatient sleep study planned - she will need to follow through with this. She was discharged home ins table condition and will need f/u with her PCP, Dr. Macias in the wound center, and she will go home with continuation of home health care. Orders were placed/Rx written for wound care for [facility] to follow. Please assess INR and restart coumadin when it trends down to a therapeutic level. Please check a BMP in 3-5 days. This patient was seen by Tra Arias PA-C under the supervision of Doctor Dickey. [] Discharge Activity: Return to Normal Activity Call your doctor if your incision/area has: - - as directed by nursing/podiatry Additional Dressing/Incision Instructions:: elevate legs at rest. Compression socks or neil wraps to leg for swelling daily Home Medications: Medications to take at Discharge Albuterol Aerosols [Ventolin Aerosols] 2.5 mg INHALATION Q4H PRN PRN 09/12/17 Albuterol IH (ProAir) [Proair Hfa] 1 puff INHALATION Q4H PRN PRN 09/12/17 Budesonide/Formoterol 160/4.5 [Symbicort 160/4.5 Mcg Inhaler (SP)] 2 puff INHALATION BID PRN 09/12/17 Calcium Phos/Vit D3/Mag Oxide [Posture-D Caplet] 1 each PO DAILY 09/12/17 Diltiazem HCl [Diltiazem ER] 240 mg PO DAILY 09/12/17 DiphenhydrAMINE [Benadryl] 25 mg PO BID PRN PRN 09/12/17 Furosemide [Lasix] 40 mg PO BID 09/12/17 Guaifenesin [Mucinex] 1,200 mg PO DAILY 09/12/17 Levothyroxine [Synthroid] 88 mcg PO DAILY 09/12/17 Metformin HCl 500 mg PO DAILY 09/12/17 Metoprolol Tartrate 50 mg PO TID 09/12/17 Omeprazole [Prilosec] 20 mg PO DAILY 09/12/17 Potassium Chloride 20 meq PO BID 09/12/17 Pravastatin [Pravachol] 20 mg PO QHS 09/12/17 Spironolactone 25 mg PO DAILY 09/12/17 Tylenol Arthritis 650 mg PO PRN PRN 09/12/17 traMADol [Ultram] 50 mg PO Q4H PRN PRN 09/12/17 Nystatin 500,000 unit PO 4X/DAY #1 bottle 09/14/17 Prednisone 40 mg PO DAILY #10 tab 09/14/17 Warfarin [Coumadin] 2 mg PO QODAY #0 09/14/17 Warfarin [Coumadin] 4 mg PO QODAY #0 09/14/17 Following Prescrptions Were Given to Patient: Nystatin 500,000 unit PO 4X/DAY #1 bottle Prednisone 40 mg PO DAILY #10 tab Primary Care Physician: Miko Navarro MD [Primary Care Provider] - Please follow up with your Primary Care Physician in: 2 weeks Please Follow Up With: Miko Macias DPM When: 1 week Please Follow Up With: Miko Navarro MD Disposition: Home with Home Health Minutes spent on discharge:: 40 Patient Condition:: Stable Medical Necessity - Tobacco Use Smoking Status: Former smoker Meaningful Use Info Meaningful Use Diagnoses (Choose all that apply): None applicable <Paintsil,[place] - Last Filed: 09/15/17 14:20> Discharge Date and Diagnosis - Primary Discharge Diagnosis Active and Suspected Problems DM (diabetes mellitus) with complications (Acute) Ulcer of right foot with fat layer exposed (Acute) PVD (peripheral vascular disease) (Acute) - Secondary Discharge Diagnosis Chronic Problems CHF (congestive heart failure) (Chronic) COPD (chronic obstructive pulmonary disease) (Chronic) Hospital Course and Treatment Consultations 09/13/17 01:54 Consult: Onc/Wound/neon sign maker Routine Comment: Reason for Consult:: Left foot wound Summary of Care Provided: The patient is a 72 year old F [] Code Visit Inpatient E&M: 78611 Disch Hosp
== END 2017-09-14 14:48 | disposition home health service (06) | DRG 683 ==
LOC: ED 22:26 → PCU 09-13 01:33
PROVIDERS: Physician Assistant; Admitting Provider Hospitalist; Emergency Provider Emergency Medicine; Family Provider Family Medicine; PCP Family Medicine; Visit Provider Internal Medicine
DX: N17.9 Acute kidney failure, unspecified (principal); J44.1 Chronic obstructive pulmonary disease with (acute) exacerbation; E11.621 Type 2 diabetes mellitus with foot ulcer; E11.51 Type 2 diabetes mellitus with diabetic peripheral angiopathy without gangrene; L97.512 Non-pressure chronic ulcer of other part of right foot with fat layer exposed; Z87.891 Personal history of nicotine dependence; I87.8 Other specified disorders of veins; I48.91 Unspecified atrial fibrillation; I50.9 Heart failure, unspecified; M20.12 Hallux valgus (acquired), left foot; M20.11 Hallux valgus (acquired), right foot
CPT/HCPCS: 36415; 71046; 73630; 80048; 82962; 85025; 85610; 87040; 87070; 87880; 94640; 97110; 97162; 97165; 97530; 97802; 99282; J7030; A4216

== ENCOUNTER 2017-09-27 10:15 | Outpatient (RCR) | payer MEDICARE, SELFPAY ==
[2017-09-20 10:19] VITALS: BP 114/67; PULSE 76; RESP 20; TEMP 35.5; BMI 36.7
--- NOTE | 2017-09-20 11:41 | HP.PCM_ITS ---
(1) Ulcer of left lower extremity with fat layer exposed Status: Acute Current Visit: Yes Code(s): L97.922 - Non-pressure chronic ulcer of unspecified part of left lower leg with fat layer exposed (2) Ulcer of right lower extremity with fat layer exposed Status: Acute Current Visit: Yes Code(s): L97.912 - Non-pressure chronic ulcer of unspecified part of right lower leg with fat layer exposed (3) PVD (peripheral vascular disease) Status: Acute Current Visit: No Code(s): I73.9 - Peripheral vascular disease , unspecified (4) Ulcer of right foot with fat layer exposed Status: Acute Current Visit: Yes Code(s): L97.512 - Non-pressure chronic ulcer of other part of right foot with fat layer exposed History of Present Illness Date of Service: 09/20/17 Chief Complaint: Bilateral lower extremity ulcers. History of Wound: Ms. Lim is a 72yo who presented her for continued wound care. She reports bilateral lower extremity ulcers and swelling which were initailly noted July 28. She since been managed both at [facility] and [facility] for cellulitis, bilatearl lower extremity swelling and ulcers. Ulcers are said to have improved since her admission at the [facility]. She has used neil wraps for compression. She feels well otherwise and debies chills, fever, nausea, vomitting or any change in her bowel habit. Past Medical History Past Medical History: Chronic Problems CHF (congestive heart failure) (Chronic) COPD (chronic obstructive pulmonary disease) (Chronic) Allergies/Adverse Reactions: Allergies cefaclor [From Ceclor] Allergy (Verified 09/20/17 10:39) Other gentamicin Allergy (Verified 09/20/17 10:39) Rash lorazepam [From Ativan] Allergy (Verified 09/20/17 10:39) Anaphylaxis Home Medications: Ambulatory Orders Medication Instructions Recorded Albuterol Aerosols [Ventolin 2.5 mg INHALATION Q4H PRN PRN 09/12/17 Aerosols] Albuterol IH (ProAir) [Proair Hfa] 1 puff INHALATION Q4H PRN PRN 09/12/17 Budesonide/Formoterol 160/4.5 2 puff INHALATION BID PRN 09/12/17 [Symbicort 160/4.5 Mcg Inhaler (SP)] Calcium Phos/Vit D3/Mag Oxide 1 each PO DAILY 09/12/17 [Posture-D Caplet] Diltiazem HCl [Diltiazem ER] 240 mg PO DAILY 09/12/17 DiphenhydrAMINE [Benadryl] 25 mg PO BID PRN PRN 09/12/17 Furosemide [Lasix] 40 mg PO BID 09/12/17 Guaifenesin [Mucinex] 1,200 mg PO DAILY 09/12/17 Levothyroxine [Synthroid] 88 mcg PO DAILY 09/12/17 Metformin HCl 500 mg PO DAILY 09/12/17 Metoprolol Tartrate 50 mg PO TID 09/12/17 Omeprazole [Prilosec] 20 mg PO DAILY 09/12/17 Potassium Chloride 20 meq PO BID 09/12/17 Pravastatin [Pravachol] 20 mg PO QHS 09/12/17 Spironolactone 25 mg PO DAILY 09/12/17 Tylenol Arthritis 650 mg PO PRN PRN 09/12/17 traMADol [Ultram] 50 mg PO Q4H PRN PRN 09/12/17 Nystatin 500,000 unit PO 4X/DAY #1 bottle 09/14/17 Prednisone 40 mg PO DAILY #10 tab 09/14/17 Warfarin [Coumadin] 2 mg PO QODAY #0 09/14/17 Warfarin [Coumadin] 4 mg PO QODAY #0 09/14/17 - Family History Paternal COPD Maternal Heart Disease, Hypertension Smoking Status: Former smoker Review of Systems Constitutional: Denies: Anorexia, Chills, Fever Eyes: Denies: Blurred vision, Pain, Redness HEENT: Denies: Difficulty Hearing, Dysphasia Cardiovascular: Denies: Chest Pain, Chest Tightness Respiratory: Denies: Hemoptysis Gastrointestinal: Denies: Abdominal Pain, Hematemesis, Vomiting Genitourinary: Denies: Hematuria Skin: Denies: Jaundice - Physical Exam Vital Signs Temp Pulse Resp BP 96 F L 76 20 H 114/67 09/20/17 10:19 09/20/17 10:19 09/20/17 10:19 09/20/17 10:19 General: Alert, Oriented x3, Cooperative, No apparent distress HEENT: Atraumatic Oral: Moist Mucosa Neck: Supple Lungs: No wheeze Cardiovascular: Regular rate Abdomen: Non Tender, Obese Extremities: No cyanosis, Edema Skin: Ulcer/ Wound Wound Measurements and Assessment WC - Nurse 1 - General Ulcer Measurement Start: 09/20/17 10:03 Freq: Status: Active Protocol: Activity Type Activity Date Activity User E-Sign Co-Sign Detail Recorded Client Recorded Date Recorded By Document 09/20/17 10:19 DL [id number] 09/20/17 10:35 DL 09/20/17 10:19 Wound Center Nurse 1 [Ulcer Assessment] #2 R Post LE -Current Size (cm) - Length 1.8 -Current Size (cm) - Width 0.8 -Current Size (cm) - Depth 0.1 -Total Square Cm 1.44 -Photo Taken Yes -Classification - Thickness Partial Thickness -Exudate Amt None Present (0 %) -Wound Margin Distinct, Outline Attached -Granulation Amt Small (1-33%) -Granulation Quality [place] -Necrosis Amt Small (1-33%) -Necrotic Tissue Type Adherent Slough -Structure Exposed N/A -Texture (Ashley-wound Skin Appearance) Localized Edema -Moisture (Ashley-wound Skin Appearance Dry/Scaly ) -Color (Ashley-wound Skin Appearance) Hemosiderin Staining -Temperature (Ashley-wound Skin No Abnormality Appearance) (Pt Warm) -Ulcer Cleansing Wound Cleanser -Foul Odor after Cleansing No -Anesthetic Used 4% Lidocaine Solution #1 R Dorsal Foot -Current Size (cm) - Length 3.8 -Current Size (cm) - Width 4.3 -Current Size (cm) - Depth 0.1 -Total Square Cm 16.34 -Photo Taken Yes -Classification - Thickness Partial Thickness -Exudate Amt None Present (0 %) -Wound Margin Flat & Intact -Granulation Amt Small (1-33%) -Granulation Quality [place] -Necrosis Amt Large (67-100%) -Necrotic Tissue Type Adherent Slough -Structure Exposed N/A -Texture (Ashley-wound Skin Appearance) Scarring -Moisture (Ashley-wound Skin Appearance Dry/Scaly ) -Color (Ashley-wound Skin Appearance) Erythema -Temperature (Ashley-wound Skin No Abnormality Appearance) (Pt Warm) -Tenderness on Palpation (Ashley-wound No Skin Appearance) -Ulcer Cleansing Wound Cleanser -Foul Odor after Cleansing No -Anesthetic Used 4% Lidocaine Solution [Edema Assessment] -Right Calf (cm) 29.2 -Right Ankle (cm) 17.4 -Left Calf (cm) 31 -Left Ankle (cm) 16.5 WC - Nurse 2 - General Ulcer CM Notes Start: 09/20/17 10:03 Freq: Status: Active Protocol: Activity Type Activity Date Activity User E-Sign Co-Sign Detail Recorded Client Recorded Date Recorded By Document 09/20/17 11:01 MW [id number] 09/20/17 11:09 MW 09/20/17 11:01 Wound Center Nurse 2 [Procedure/Treatment] #3 LEFT ANTERIOR LE -Time 11:04 -Correct Patient Yes -Correct Side, Site, Position Yes -Correct Procedure Yes -Procedure Performed Yes -Type of Procedure Debridement -Clinical Debridement Subcutaneous -Post Debridement Size (cm) - Length 0.5 -Post Debridement Size (cm) - Width 0.3 -Post Debridement Size (cm) - Depth 0.1 -Total Square Cm 0.15 -Wound/Ulcer Outcome Not Healed -Ulcer Cleansing Rinsed/ Irrigated with Saline -Foul Odor after Cleansing No -Bioengineered Tissue No -Bleeding Controlled with Pressure -Treatment Response Procedure Tolerated Well #2 R Post LE -Time 11:03 -Correct Patient Yes -Correct Side, Site, Position Yes -Correct Procedure Yes -Procedure Performed Yes -Type of Procedure Debridement -Clinical Debridement Subcutaneous -Post Debridement Size (cm) - Length 2.0 -Post Debridement Size (cm) - Width 1.0 -Post Debridement Size (cm) - Depth 0.2 -Total Square Cm 2.00 -Wound/Ulcer Outcome Not Healed -Ulcer Cleansing Rinsed/ Irrigated with Saline -Foul Odor after Cleansing No -Bioengineered Tissue No -Bleeding Controlled with Pressure -Treatment Response Procedure Tolerated Well #1 R Dorsal Foot -Time 11:03 -Correct Patient Yes -Correct Side, Site, Position Yes -Correct Procedure Yes -Procedure Performed Yes -Type of Procedure Debridement -Clinical Debridement Subcutaneous -Post Debridement Size (cm) - Length 1.6 -Post Debridement Size (cm) - Width 0.2 -Post Debridement Size (cm) - Depth 0.1 -Total Square Cm 0.32 -Wound/Ulcer Outcome Not Healed -Ulcer Cleansing Rinsed/ Irrigated with Saline -Foul Odor after Cleansing No -Bioengineered Tissue No -Bleeding Controlled with Pressure -Treatment Response Procedure Tolerated Well [See Physician Procedure note for Specifics] Pain Scale: 0-10 Numeric [Pain] -Is Patient Pain Free? Yes Neurological: Cranial nerves II-XII grossly intact Psych/Mental Status: Normal Affect Debridement Note Post-Debridement Measurements/Treatment WC - Nurse 2 - General Ulcer CM Notes Start: 09/20/17 10:03 Freq: Status: Active Protocol: Activity Type Activity Date Activity User E-Sign Co-Sign Detail Recorded Client Recorded Date Recorded By Document 09/20/17 11:01 MW [id number] 09/20/17 11:09 MW 09/20/17 11:01 Wound Center Nurse 2 #3 LEFT ANTERIOR LE -Time 11:04 -Correct Patient Yes -Correct Side, Site, Position Yes -Correct Procedure Yes -Procedure Performed Yes -Type of Procedure Debridement -Clinical Debridement Subcutaneous -Post Debridement Size (cm) - Length 0.5 -Post Debridement Size (cm) - Width 0.3 -Post Debridement Size (cm) - Depth 0.1 -Total Square Cm 0.15 -Wound/Ulcer Outcome Not Healed -Ulcer Cleansing Rinsed/ Irrigated with Saline -Foul Odor after Cleansing No -Bioengineered Tissue No -Bleeding Controlled with Pressure -Treatment Response Procedure Tolerated Well #2 R Post LE -Time 11:03 -Correct Patient Yes -Correct Side, Site, Position Yes -Correct Procedure Yes -Procedure Performed Yes -Type of Procedure Debridement -Clinical Debridement Subcutaneous -Post Debridement Size (cm) - Length 2.0 -Post Debridement Size (cm) - Width 1.0 -Post Debridement Size (cm) - Depth 0.2 -Total Square Cm 2.00 -Wound/Ulcer Outcome Not Healed -Ulcer Cleansing Rinsed/ Irrigated with Saline -Foul Odor after Cleansing No -Bioengineered Tissue No -Bleeding Controlled with Pressure -Treatment Response Procedure Tolerated Well #1 R Dorsal Foot -Time 11:03 -Correct Patient Yes -Correct Side, Site, Position Yes -Correct Procedure Yes -Procedure Performed Yes -Type of Procedure Debridement -Clinical Debridement Subcutaneous -Post Debridement Size (cm) - Length 1.6 -Post Debridement Size (cm) - Width 0.2 -Post Debridement Size (cm) - Depth 0.1 -Total Square Cm 0.32 -Wound/Ulcer Outcome Not Healed -Ulcer Cleansing Rinsed/ Irrigated with Saline -Foul Odor after Cleansing No -Bioengineered Tissue No -Bleeding Controlled with Pressure -Treatment Response Procedure Tolerated Well Pain Scale: 0-10 Numeric Is Patient Pain Free? Yes Wound debrided: Left lower exremity Wound Grade/Stage: Stage II Type of Debridement: Excisional debridement Anesthesia Used: 4% Lidocaine Solution Depth: Down to and including healthy tissue, in the subcutaneous layer Percentage of wound debrided: 100 Instrument Used: 3mm curette Tissue Removed: Slough and devitalized tissue Severity: Fat Layer Exposed Amount of bleeding with debridement: Mild Bleeding Controlled with: Pressure Patient tolerated procedure well - Additional Wound Wound debrided: Right foot ( Dorsum ) Wound Grade/Stage: Stage II Type of Debridement: Excisional debridement Anesthesia Used: 4% Lidocaine Solution Depth: Down to and including healthy tissue, in the subcutaneous layer Percentage of wound debrided: 100 Instrument Used: 5mm curette Tissue Removed: Devitalized tissue Severity: Fat Layer Exposed Patient tolerated procedure: Patient tolerated procedure well - Additional Wound Wound debrided: Right lower extremity ( posterior ) Wound Grade/Stage: Stage II Type of Debridement: Excisional debridement Anesthesia Used: 4% Lidocaine Solution Depth: Down to and including healthy tissue, in the subcutaneous layer Percentage of wound debrided: 100 Instrument Used: 5mm curette Tissue Removed: Slough and dvitalized tissue Severity: Fat Layer Exposed Amount of bleeding with debridement: Mild Bleeding Controlled with: Pressure Patient tolerated procedure: Patient tolerated procedure well Assessment/Plan Active Problems Ulcer of left lower extremity with fat layer exposed (Acute) Ulcer of right lower extremity with fat layer exposed (Acute) Ulcer of right foot with fat layer exposed (Acute) Assessment: Bilateral lpowere xtremity ulcers in a patient with ? PAD. New Onset DM type 2, well controlled. Tobacco abuse in remission. Debility. Plan: Debridement done as documeneted above, procedure was well tolerated. Apply Fbrochol with adaptic over top to right and left lower extremity ulcers nad xeroform to the right foot ulcer. Patient states, she has had work up done recently at the hospitals mentioned above. Will request records and hold off studies for now. prealbumin ordered to assess nutritional status. Optimal blood suagr control. Continue follow up with PCP. Single layer Tubi professor of mechanical engineering for edema management. Elevate lower extremity when seated and in bed. Follow up in 1 week. Her questions were answered and she was advised to call with any questions or concerns.
[2017-09-20 14:14] LABS: Prealbumin 42.5 mg/dL (20.0-40.0)
[2017-09-27 10:53] VITALS: BP 106/55; PULSE 75; RESP 18; TEMP 36.2; BMI 36.7
== END 2017-10-19 23:59 ==
LOC: WC 10:15
PROVIDERS: Family Provider Family Medicine; PCP Family Medicine; Visit Provider Internal Medicine
DX: E11.621 Type 2 diabetes mellitus with foot ulcer (principal); E11.622 Type 2 diabetes mellitus with other skin ulcer; L97.822 Non-pressure chronic ulcer of other part of left lower leg with fat layer exposed; L97.812 Non-pressure chronic ulcer of other part of right lower leg with fat layer exposed; L97.512 Non-pressure chronic ulcer of other part of right foot with fat layer exposed; M79.89 Other specified soft tissue disorders; I50.9 Heart failure, unspecified; J44.9 Chronic obstructive pulmonary disease, unspecified; Z79.899 Other long term (current) drug therapy; Z79.01 Long term (current) use of anticoagulants; Z87.891 Personal history of nicotine dependence; E11.51 Type 2 diabetes mellitus with diabetic peripheral angiopathy without gangrene
CPT/HCPCS: 11042; 84134; 99203; G0463

== ENCOUNTER 2018-04-17 10:45 | Outpatient (RCR) | payer MEDICARE, SELFPAY ==
[2017-10-20 00:21] VITALS: BP 106/55; PULSE 75; RESP 18; TEMP 36.2
[2018-04-04 10:11] VITALS: BP 126/75; PULSE 84; RESP 16; TEMP 36.4; BMI 37.8
--- NOTE | 2018-04-04 10:31 | WC ---
PT DOES NOT HAVE AN UP TO DATE MED LIST WITH HER, CAN'T REMEMBER MEDS OR DOSES. WILL BRING TO NEXT VISIT. GRANDDAUGHTER, WHO IS WITH HER, CONFIRMS. ALSO, DID NOT PERFORM LE EVAL. PT STATES SHE HAS BEEN SEEING VASCULAR FEE CLERK AT THE [facility] AND HAS HAD ARTERIAL STUDIES WITHIN THE LAST 6 MONTHS. HAS A F/U AT THIS OFFICE WITHIN THE NEXT FEW WEEKS.
--- NOTE | 2018-04-04 11:19 | HP.PCM_ITS ---
(1) Wound of left lower extremity Status: Acute Current Visit: Yes Code(s): S81.802A - Unspecified open wound, left lower leg, initial encounter Comment: Traumatic penetrating with fat layer exposed. (2) PVD (peripheral vascular disease) Status: Acute Current Visit: No Code(s): I73.9 - Peripheral vascular disease, unspecified (3) Venous stasis Status: Acute Current Visit: No Code(s): I87.8 - Other specified disorders of veins History of Present Illness Chief Complaint: Left lower extremity wound. History of Wound: Ms. Lim is a 72yo who presented her to the wound center due to nonhealing left lower extremity wound. Sustained trauma to the left lower extremity on 18 March while transferring to a commode during her last hospital stay. She has been managed at home by home health care without any significant improvement and so it was recommended that she follow-up here. She denies any significant drainage. Denies chills, fever otherwise feeling of unwell. She states that she quit smoking 4 days ago and is currently on a nicotine patch. Past Medical History Past Medical History: Chronic Problems CHF (congestive heart failure) (Chronic) COPD (chronic obstructive pulmonary disease) (Chronic) Allergies/Adverse Reactions: Allergies cefaclor [From Ceclor] Allergy (Verified 04/04/18 10:31) Other gentamicin Allergy (Verified 04/04/18 10:31) Rash lorazepam [From Ativan] Allergy (Verified 04/04/18 10:31) Anaphylaxis Home Medications: Ambulatory Orders Medication Instructions Recorded Albuterol Aerosols [Ventolin 2.5 mg INHALATION Q4H PRN PRN 09/12/17 Aerosols] Albuterol IH (ProAir) [Proair Hfa] 1 puff INHALATION Q4H PRN PRN 09/12/17 Budesonide/Formoterol 160/4.5 2 puff INHALATION BID PRN 09/12/17 [Symbicort 160/4.5 Mcg Inhaler (SP)] Calcium Phos/Vit D3/Mag Oxide 1 each PO DAILY 09/12/17 [Posture-D Caplet] Diltiazem HCl [Diltiazem ER] 240 mg PO DAILY 09/12/17 DiphenhydrAMINE [Benadryl] 25 mg PO BID PRN PRN 09/12/17 Furosemide [Lasix] 40 mg PO BID 09/12/17 Guaifenesin [Mucinex] 1,200 mg PO DAILY 09/12/17 Levothyroxine [Synthroid] 88 mcg PO DAILY 09/12/17 Metformin HCl 500 mg PO DAILY 09/12/17 Metoprolol Tartrate 50 mg PO TID 09/12/17 Omeprazole [Prilosec] 20 mg PO DAILY 09/12/17 Potassium Chloride 20 meq PO BID 09/12/17 Pravastatin [Pravachol] 20 mg PO QHS 09/12/17 Spironolactone 25 mg PO DAILY 09/12/17 Tylenol Arthritis 650 mg PO PRN PRN 09/12/17 traMADol [Ultram] 50 mg PO Q4H PRN PRN 09/12/17 Nystatin 500,000 unit PO 4X/DAY #1 bottle 09/14/17 Prednisone 40 mg PO DAILY #10 tab 09/14/17 Warfarin [Coumadin] 2 mg PO QODAY #0 09/14/17 Warfarin [Coumadin] 4 mg PO QODAY #0 09/14/17 - Family History Paternal COPD Maternal Heart Disease, Hypertension Smoking Status: Former smoker Review of Systems Constitutional: Denies: Anorexia, Chills, Fever Eyes: Denies: Blurred vision, Pain, Redness HEENT: Denies: Difficulty Swallowing Cardiovascular: Denies: Chest Tightness Respiratory: Denies: Hemoptysis Gastrointestinal: Denies: Abdominal Pain, Hematemesis, Vomiting Skin: Denies: Jaundice - Physical Exam Vital Signs Temp Pulse Resp BP 97.5 F L 84 16 126/75 H 04/04/18 10:11 04/04/18 10:11 04/04/18 10:11 04/04/18 10:11 General: Alert, Oriented x3, Cooperative, No apparent distress HEENT: Atraumatic, Normocephalic Oral: Moist Mucosa Neck: Supple Lungs: Clear to auscultation Cardiovascular: Regular rate, Regular Rhythm, Normal S1, Normal S2 Abdomen: Soft, Non Tender, Obese Extremities: No cyanosis, Edema Skin: Ulcer/ Wound Wound Measurements and Assessment WC - Nurse 1 - General Ulcer Measurement Start: 04/04/18 10:01 Freq: Status: Active Protocol: Activity Type Activity Date Activity User E-Sign Co-Sign Detail Recorded Client Recorded Date Recorded By Document 04/04/18 10:11 [facility] [id number] 04/04/18 10:25 [facility] 04/04/18 10:11 Wound Center Nurse 1 [Ulcer Assessment] #4- LT CALF POST TRAUMA -Combined with other wound No -Current Size (cm) - Length 1.7 -Current Size (cm) - Width 1.4 -Current Size (cm) - Depth 0.3 -Total Square Cm 2.38 -Date of Last Picture (Recall this 04/04/18 field) -Photo Taken Yes -Epithelialization None Present -Tunneling No -Undermining/Tunneling No -Circular Undermining No -Exudate Amt Small -Exudate Type Sanguineous -Wound Margin Flat & Intact -Granulation Amt Medium (34-66%) -Granulation Quality Red -Slough/Fibrin Yes -Necrosis Amt Medium (34-66%) -Necrotic Tissue Type Adherent Slough -Texture (Ashley-wound Skin Appearance) Assessed Scarring -Moisture (Ashley-wound Skin Appearance Assessed ) Dry/Scaly -Color (Ashley-wound Skin Appearance) Assessed -Temperature (Ashley-wound Skin No Abnormality Appearance) (Pt Warm) -Tenderness on Palpation (Ashley-wound No Skin Appearance) -Ulcer Cleansing Rinsed/ Irrigated with Saline -Foul Odor after Cleansing No -Anesthetic Used 5% Lidocaine Gel [Edema Assessment] -Lower Limb Edema Present Yes -Right Calf (cm) 32.1 -Right Ankle (cm) 21.4 -Left Calf (cm) 35.1 -Left Ankle (cm) 21.4 WC - Nurse 2 - General Ulcer CM Notes Start: 04/04/18 10:01 Freq: Status: Active Protocol: Activity Type Activity Date Activity User E-Sign Co-Sign Detail Recorded Client Recorded Date Recorded By Document 04/04/18 10:44 MW [id number] 04/04/18 10:49 MW 04/04/18 10:44 Wound Center Nurse 2 [Procedure/Treatment] #4- LT CALF POST TRAUMA -Time 10:47 -Correct Patient Yes -Correct Side, Site, Position Yes -Correct Procedure Yes -Procedure Performed Yes -Type of Procedure Debridement -Clinical Debridement Subcutaneous -Post Debridement Size (cm) - Length 1.5 -Post Debridement Size (cm) - Width 1.9 -Post Debridement Size (cm) - Depth 0.2 -Total Square Cm 2.85 -Wound/Ulcer Outcome Not Healed -Ulcer Cleansing Rinsed/ Irrigated with Saline -Foul Odor after Cleansing No -Bioengineered Tissue No -Bleeding Controlled with Pressure -Offloading No -Treatment Response Procedure Tolerated Well [See Physician Procedure note for Specifics] Pain Scale: 0-10 Numeric [Pain] -Is Patient Pain Free? Yes Musculoskeletal: No Muscle Wasting Neurological: Cranial nerves II-XII grossly intact Psych/Mental Status: Normal Affect Debridement Note Post-Debridement Measurements/Treatment WC - Nurse 2 - General Ulcer CM Notes Start: 04/04/18 10:01 Freq: Status: Active Protocol: Activity Type Activity Date Activity User E-Sign Co-Sign Detail Recorded Client Recorded Date Recorded By Document 04/04/18 10:44 MW [id number] 04/04/18 10:49 MW 04/04/18 10:44 Wound Center Nurse 2 #4- LT CALF POST TRAUMA -Time 10:47 -Correct Patient Yes -Correct Side, Site, Position Yes -Correct Procedure Yes -Procedure Performed Yes -Type of Procedure Debridement -Clinical Debridement Subcutaneous -Post Debridement Size (cm) - Length 1.5 -Post Debridement Size (cm) - Width 1.9 -Post Debridement Size (cm) - Depth 0.2 -Total Square Cm 2.85 -Wound/Ulcer Outcome Not Healed -Ulcer Cleansing Rinsed/ Irrigated with Saline -Foul Odor after Cleansing No -Bioengineered Tissue No -Bleeding Controlled with Pressure -Offloading No -Treatment Response Procedure Tolerated Well Pain Scale: 0-10 Numeric Is Patient Pain Free? Yes Wound debrided: Left lower extremity Wound Grade/Stage: Stage II Type of Debridement: Excisional debridement Anesthesia Used: 4% Lidocaine Solution Depth: Down to and including healthy tissue, in the subcutaneous layer Percentage of wound debrided: 100 Instrument Used: 3mm curette Tissue Removed: Slough and devitalized tissue Severity: Fat Layer Exposed Amount of bleeding with debridement: Mild Bleeding Controlled with: Pressure Patient tolerated procedure well Assessment/Plan Active Problems Wound of left lower extremity (Acute) Traumatic penetrating with fat layer exposed. Assessment: Traumatic, penetrating left lower extremity wound with fat layer exposed. History of tobacco abuse. Plan: Debridement done as documented above. Procedure was well-tolerated. Apply Fibracol daily with Adaptic over top. Single layer Tubigrip for edema management. Advised to elevate lower extremities when seated and in bed. Increased protein intake recommended. All her questions were answered and she was advised to call with any further questions or concerns. Follow-up in 1 week. This note was generated with [employer] software. It may contain incorrect words, spelling, and punctuation that were not noted in checking the note before signing.
[2018-04-11 12:57] VITALS: BP 132/54; PULSE 80; RESP 20; TEMP 36.1; BMI 37.8
--- NOTE | 2018-04-11 13:41 | PCM.WC.PN ---
(1) Wound of left lower extremity Status: Acute Current Visit: Yes Code(s): S81.802A - Unspecified open wound, left lower leg, initial encounter Comment: Traumatic penetrating with fat layer exposed. (2) PVD (peripheral vascular disease) Status: Acute Current Visit: Yes Code(s): I73.9 - Peripheral vascular disease, unspecified (3) Venous stasis Status: Acute Current Visit: Yes Code(s): I87.8 - Other specified disorders of veins (4) Left leg cellulitis Status: Acute Current Visit: Yes Code(s): L03.116 - Cellulitis of left lower limb Type of Wound Chief Complaint: Left lower extremity wound. History of Wound: Ms. Lim is a 72yo who presented her to the wound center due to nonhealing left lower extremity wound. Sustained trauma to the left lower extremity on 18 March while transferring to a commode during her last hospital stay. She has been managed at home by home health care without any significant improvement and so it was recommended that she follow-up here. She denies any significant drainage. Denies chills, fever otherwise feeling of unwell. She states that she quit smoking 4 days ago and is currently on a nicotine patch. Progress of Wound: Increased swelling redness and tenderness of left lower extremity noted over the past week. Concerning for cellulitis. Started on Bactrim by her primary care physician. - Physical Exam Vital Signs Temp Pulse Resp BP 97.0 F L 80 20 H 132/54 H 04/11/18 12:57 04/11/18 12:57 04/11/18 12:57 04/11/18 12:57 General: Alert, Oriented x3, Cooperative, No apparent distress HEENT: Atraumatic, Normocephalic Oral: Moist Mucosa Neck: Supple Lungs: Normal air movement Extremities: No cyanosis, Edema Skin: Ulcer/ Wound Wound Measurements and Assessment WC - Nurse 1 - General Ulcer Measurement Start: 04/04/18 10:01 Freq: Status: Active Protocol: Activity Type Activity Date Activity User E-Sign Co-Sign Detail Recorded Client Recorded Date Recorded By Document 04/11/18 12:57 AN [id number] 04/11/18 13:02 AN 04/11/18 12:57 Wound Center Nurse 1 [Ulcer Assessment] #4- LT CALF POST TRAUMA -Current Size (cm) - Length 1.5 -Current Size (cm) - Width 1.5 -Current Size (cm) - Depth 0.2 -Total Square Cm 2.25 -Photo Taken No -Classification - Thickness Full Thickness without Exposed Support Structure -Exudate Amt Small -Exudate Type Purulent -Wound Margin Distinct, Outline Attached -Granulation Amt Small (1-33%) -Granulation Quality Red -Necrosis Amt Large (67-100%) -Necrotic Tissue Type Adherent Slough -Structure Exposed None/Limited to Skin Breakdown -Texture (Ashley-wound Skin Appearance) Assessed -Moisture (Ashley-wound Skin Appearance Assessed ) -Color (Ashley-wound Skin Appearance) Assessed -Temperature (Ashley-wound Skin No Abnormality Appearance) (Pt Warm) -Tenderness on Palpation (Ashley-wound Yes Skin Appearance) -Ulcer Cleansing Rinsed/ Irrigated with Saline -Foul Odor after Cleansing No -Anesthetic Used 5% Lidocaine Gel [Edema Assessment] -Right Calf (cm) 36 -Right Ankle (cm) 21 -Left Calf (cm) 38.4 -Left Ankle (cm) 19.5 WC - Nurse 2 - General Ulcer CM Notes Start: 04/04/18 10:01 Freq: Status: Active Protocol: Activity Type Activity Date Activity User E-Sign Co-Sign Detail Recorded Client Recorded Date Recorded By Document 04/11/18 13:13 MW [id number] 04/11/18 13:19 MW 04/11/18 13:13 Wound Center Nurse 2 [Procedure/Treatment] #4- LT CALF POST TRAUMA -Time 13:14 -Correct Patient Yes -Correct Side, Site, Position Yes -Correct Procedure Yes -Procedure Performed Yes -Type of Procedure Debridement -Clinical Debridement Subcutaneous -Post Debridement Size (cm) - Length 1.3 -Post Debridement Size (cm) - Width 1.3 -Post Debridement Size (cm) - Depth 0.3 -Total Square Cm 1.69 -Wound/Ulcer Outcome Not Healed -Ulcer Cleansing Rinsed/ Irrigated with Saline -Foul Odor after Cleansing No -Bioengineered Tissue No -Bleeding Controlled with Pressure -Offloading No -Treatment Response Procedure Tolerated Well [See Physician Procedure note for Specifics] Pain Scale: 0-10 Numeric [Pain] -Is Patient Pain Free? Yes Neurological: Cranial nerves II-XII grossly intact Psych/Mental Status: Normal Affect Debridement Note Post-Debridement Measurements/Treatment WC - Nurse 2 - General Ulcer CM Notes Start: 04/04/18 10:01 Freq: Status: Active Protocol: Activity Type Activity Date Activity User E-Sign Co-Sign Detail Recorded Client Recorded Date Recorded By Document 04/04/18 10:44 MW [id number] 04/04/18 10:49 MW Document 04/11/18 13:13 MW [id number] 04/11/18 13:19 MW 04/04/18 04/11/18 10:44 13:13 Wound Center Nurse 2 #4- LT CALF POST TRAUMA -Time 10:47 13:14 -Correct Patient Yes Yes -Correct Side, Site, Position Yes Yes -Correct Procedure Yes Yes -Procedure Performed Yes Yes -Type of Procedure Debridement Debridement -Clinical Debridement Subcutaneous Subcutaneous -Post Debridement Size (cm) - Length 1.5 1.3 -Post Debridement Size (cm) - Width 1.9 1.3 -Post Debridement Size (cm) - Depth 0.2 0.3 -Total Square Cm 2.85 1.69 -Wound/Ulcer Outcome Not Healed Not Healed -Ulcer Cleansing Rinsed/ Rinsed/ Irrigated with Irrigated with Saline Saline -Foul Odor after Cleansing No No -Bioengineered Tissue No No -Bleeding Controlled with Pressure Pressure -Offloading No No -Treatment Response Procedure Procedure Tolerated Well Tolerated Well Pain Scale: 0-10 Numeric Is Patient Pain Free? Yes Yes Wound debrided: Left lower extremity Wound Grade/Stage: Stage II Type of Debridement: Excisional debridement Anesthesia Used: 4% Lidocaine Solution Depth: Down to and including healthy tissue, in the subcutaneous layer Percentage of wound debrided: 100 Instrument Used: 3mm curette Tissue Removed: Slough and devitalized tissue Severity: Fat Layer Exposed Amount of bleeding with debridement: Mild Bleeding Controlled with: Pressure Patient tolerated procedure well Assessment/Plan Active Problems Wound of left lower extremity (Acute) Traumatic penetrating with fat layer exposed. Left leg cellulitis (Acute) Venous stasis (Acute) PVD (peripheral vascular disease) (Acute) Assessment: Traumatic, penetrating left lower extremity wound with fat layer exposed. History of tobacco abuse. Plan: Debridement done as documented above. Procedure was well-tolerated. Continue Fibracol daily with Adaptic over top. Single layer Tubigrip for edema management. Advised to elevate lower extremities when seated and in bed. Increased protein intake recommended. Will add Keflex for left lower extremity cellulitis. Continue Bactrim. All her questions were answered and she was advised to call with any further questions or concerns. Follow-up in 1 week. This note was generated with [employer] dictation software. It may contain incorrect words, spelling, and punctuation that were not noted in checking the note before signing.
--- NOTE | 2018-04-11 13:44 | PN.PCM_ITS ---
(1) Wound of left lower extremity Status: Acute Current Visit: Yes Code(s): S81.802A - Unspecified open wound, left lower leg, initial encounter Comment: Traumatic penetrating with fat layer exposed. (2) PVD (peripheral vascular disease) Status: Acute Current Visit: Yes Code(s): I73.9 - Peripheral vascular disease, unspecified (3) Venous stasis Status: Acute Current Visit: Yes Code(s): I87.8 - Other specified disorders of veins (4) Left leg cellulitis Status: Acute Current Visit: Yes Code(s): L03.116 - Cellulitis of left lower limb Type of Wound Chief Complaint: Left lower extremity wound. History of Wound: Ms. Lim is a 72yo who presented her to the wound center due to nonhealing left lower extremity wound. Sustained trauma to the left lower extremity on 18 March while transferring to a commode during her last hospital stay. She has been managed at home by home health care without any significant improvement and so it was recommended that she follow-up here. She denies any significant drainage. Denies chills, fever otherwise feeling of unwell. She states that she quit smoking 4 days ago and is currently on a nicotine patch. Progress of Wound: Increased swelling redness and tenderness of left lower extremity noted over the past week. Concerning for cellulitis. Started on Bactrim by her primary care physician. - Physical Exam Vital Signs Temp Pulse Resp BP 97.0 F L 80 20 H 132/54 H 04/11/18 12:57 04/11/18 12:57 04/11/18 12:57 04/11/18 12:57 General: Alert, Oriented x3, Cooperative, No apparent distress HEENT: Atraumatic, Normocephalic Oral: Moist Mucosa Neck: Supple Lungs: Normal air movement Extremities: No cyanosis, Edema Skin: Ulcer/ Wound Wound Measurements and Assessment WC - Nurse 1 - General Ulcer Measurement Start: 04/04/18 10:01 Freq: Status: Active Protocol: Activity Type Activity Date Activity User E-Sign Co-Sign Detail Recorded Client Recorded Date Recorded By Document 04/11/18 12:57 AN [id number] 04/11/18 13:02 AN 04/11/18 12:57 Wound Center Nurse 1 [Ulcer Assessment] #4- LT CALF POST TRAUMA -Current Size (cm) - Length 1.5 -Current Size (cm) - Width 1.5 -Current Size (cm) - Depth 0.2 -Total Square Cm 2.25 -Photo Taken No -Classification - Thickness Full Thickness without Exposed Support Structure -Exudate Amt Small -Exudate Type Purulent -Wound Margin Distinct, Outline Attached -Granulation Amt Small (1-33%) -Granulation Quality Red -Necrosis Amt Large (67-100%) -Necrotic Tissue Type Adherent Slough -Structure Exposed None/Limited to Skin Breakdown -Texture (Ashley-wound Skin Appearance) Assessed -Moisture (Ashley-wound Skin Appearance Assessed ) -Color (Ashley-wound Skin Appearance) Assessed -Temperature (Ashley-wound Skin No Abnormality Appearance) (Pt Warm) -Tenderness on Palpation (Ashley-wound Yes Skin Appearance) -Ulcer Cleansing Rinsed/ Irrigated with Saline -Foul Odor after Cleansing No -Anesthetic Used 5% Lidocaine Gel [Edema Assessment] -Right Calf (cm) 36 -Right Ankle (cm) 21 -Left Calf (cm) 38.4 -Left Ankle (cm) 19.5 WC - Nurse 2 - General Ulcer CM Notes Start: 04/04/18 10:01 Freq: Status: Active Protocol: Activity Type Activity Date Activity User E-Sign Co-Sign Detail Recorded Client Recorded Date Recorded By Document 04/11/18 13:13 MW [id number] 04/11/18 13:19 MW 04/11/18 13:13 Wound Center Nurse 2 [Procedure/Treatment] #4- LT CALF POST TRAUMA -Time 13:14 -Correct Patient Yes -Correct Side, Site, Position Yes -Correct Procedure Yes -Procedure Performed Yes -Type of Procedure Debridement -Clinical Debridement Subcutaneous -Post Debridement Size (cm) - Length 1.3 -Post Debridement Size (cm) - Width 1.3 -Post Debridement Size (cm) - Depth 0.3 -Total Square Cm 1.69 -Wound/Ulcer Outcome Not Healed -Ulcer Cleansing Rinsed/ Irrigated with Saline -Foul Odor after Cleansing No -Bioengineered Tissue No -Bleeding Controlled with Pressure -Offloading No -Treatment Response Procedure Tolerated Well [See Physician Procedure note for Specifics] Pain Scale: 0-10 Numeric [Pain] -Is Patient Pain Free? Yes Neurological: Cranial nerves II-XII grossly intact Psych/Mental Status: Normal Affect Debridement Note Post-Debridement Measurements/Treatment WC - Nurse 2 - General Ulcer CM Notes Start: 04/04/18 10:01 Freq: Status: Active Protocol: Activity Type Activity Date Activity User E-Sign Co-Sign Detail Recorded Client Recorded Date Recorded By Document 04/04/18 10:44 MW [id number] 04/04/18 10:49 MW Document 04/11/18 13:13 MW [id number] 04/11/18 13:19 MW 04/04/18 04/11/18 10:44 13:13 Wound Center Nurse 2 #4- LT CALF POST TRAUMA -Time 10:47 13:14 -Correct Patient Yes Yes -Correct Side, Site, Position Yes Yes -Correct Procedure Yes Yes -Procedure Performed Yes Yes -Type of Procedure Debridement Debridement -Clinical Debridement Subcutaneous Subcutaneous -Post Debridement Size (cm) - Length 1.5 1.3 -Post Debridement Size (cm) - Width 1.9 1.3 -Post Debridement Size (cm) - Depth 0.2 0.3 -Total Square Cm 2.85 1.69 -Wound/Ulcer Outcome Not Healed Not Healed -Ulcer Cleansing Rinsed/ Rinsed/ Irrigated with Irrigated with Saline Saline -Foul Odor after Cleansing No No -Bioengineered Tissue No No -Bleeding Controlled with Pressure Pressure -Offloading No No -Treatment Response Procedure Procedure Tolerated Well Tolerated Well Pain Scale: 0-10 Numeric Is Patient Pain Free? Yes Yes Wound debrided: Left lower extremity Wound Grade/Stage: Stage II Type of Debridement: Excisional debridement Anesthesia Used: 4% Lidocaine Solution Depth: Down to and including healthy tissue, in the subcutaneous layer Percentage of wound debrided: 100 Instrument Used: 3mm curette Tissue Removed: Slough and devitalized tissue Severity: Fat Layer Exposed Amount of bleeding with debridement: Mild Bleeding Controlled with: Pressure Patient tolerated procedure well Assessment/Plan Active Problems Wound of left lower extremity (Acute) Traumatic penetrating with fat layer exposed. Left leg cellulitis (Acute) Venous stasis (Acute) PVD (peripheral vascular disease) (Acute) Assessment: Traumatic, penetrating left lower extremity wound with fat layer exposed. History of tobacco abuse. Plan: Debridement done as documented above. Procedure was well-tolerated. Continue Fibracol daily with Adaptic over top. Single layer Tubigrip for edema management. Advised to elevate lower extremities when seated and in bed. Increased protein intake recommended. Will add Keflex for left lower extremity cellulitis. Continue Bactrim. All her questions were answered and she was advised to call with any further questions or concerns. Follow-up in 1 week. This note was generated with [employer] dictation software. It may contain incorrect words, spelling, and punctuation that were not noted in checking the note before signing.
[2018-04-17 10:50] VITALS: BP 129/104; PULSE 83; RESP 22; TEMP 35.9; BMI 37.8
--- NOTE | 2018-04-17 11:45 | PCM.WC.PN ---
(1) Wound of left lower extremity Status: Acute Current Visit: Yes Code(s): S81.802A - Unspecified open wound, left lower leg, initial encounter Comment: Traumatic penetrating with fat layer exposed. (2) PVD (peripheral vascular disease) Status: Acute Current Visit: Yes Code(s): I73.9 - Peripheral vascular disease, unspecified (3) Venous stasis Status: Acute Current Visit: Yes Code(s): I87.8 - Other specified disorders of veins (4) Left leg cellulitis Status: Acute Current Visit: Yes Code(s): L03.116 - Cellulitis of left lower limb (5) Skin ulcer of right great toe with fat layer exposed Status: Acute Current Visit: Yes Code(s): L97.512 - Non-pressure chronic ulcer of other part of right foot with fat layer exposed Type of Wound Chief Complaint: Left lower extremity wound. History of Wound: Ms. Lim is a 72yo who presented her to the wound center due to nonhealing left lower extremity wound. Sustained trauma to the left lower extremity on 18 March while transferring to a commode during her last hospital stay. She has been managed at home by home health care without any significant improvement and so it was recommended that she follow-up here. She denies any significant drainage. Denies chills, fever otherwise feeling of unwell. She states that she quit smoking 4 days ago and is currently on a nicotine patch. Progress of Wound: Left lower extremity cellulitis has improved. She presents with a new right great toe ulcer. She has a history of hallux deformity of her right great. - Physical Exam Vital Signs Temp Pulse Resp BP 96.6 F L 83 22 H 129/104 H 04/17/18 10:50 04/17/18 10:50 04/17/18 10:50 04/17/18 10:50 General: Alert, Oriented x3, Cooperative, No apparent distress HEENT: Atraumatic, Normocephalic Oral: Moist Mucosa Neck: Supple Lungs: Normal air movement Abdomen: Non Tender, Obese Extremities: No cyanosis, Edema Skin: Ulcer/ Wound Wound Measurements and Assessment WC - Nurse 1 - General Ulcer Measurement Start: 04/04/18 10:01 Freq: Status: Active Protocol: Activity Type Activity Date Activity User E-Sign Co-Sign Detail Recorded Client Recorded Date Recorded By Document 04/17/18 10:50 [facility] [id number] 04/17/18 11:05 [facility] 04/17/18 10:50 Wound Center Nurse 1 [Ulcer Assessment] #5- RT MEDIAL FOOT BUNION -Combined with other wound No -Current Size (cm) - Length 0.4 -Current Size (cm) - Width 0.3 -Current Size (cm) - Depth 0.1 -Total Square Cm 0.12 -Date of Last Picture (Recall this 04/17/18 field) -Photo Taken Yes -Epithelialization None Present -Tunneling No -Undermining/Tunneling No -Circular Undermining No -Exudate Amt Small -Exudate Type Serous -Wound Margin Flat & Intact -Granulation Amt Small (1-33%) -Granulation Quality Red -Slough/Fibrin Yes -Necrosis Amt Large (67-100%) -Necrotic Tissue Type Adherent Slough -Texture (Ashley-wound Skin Appearance) Assessed -Moisture (Ashley-wound Skin Appearance Assessed ) -Color (Ashley-wound Skin Appearance) Erythema -Temperature (Ashley-wound Skin No Abnormality Appearance) (Pt Warm) -Tenderness on Palpation (Ashley-wound Yes Skin Appearance) -Ulcer Cleansing Rinsed/ Irrigated with Saline -Foul Odor after Cleansing No -Anesthetic Used 5% Lidocaine Gel #4- LT CALF POST TRAUMA -Combined with other wound No -Current Size (cm) - Length 1.4 -Current Size (cm) - Width 1.5 -Current Size (cm) - Depth 0.3 -Total Square Cm 2.10 -Photo Taken No -Epithelialization None Present -Tunneling No -Undermining/Tunneling No -Circular Undermining No -Exudate Amt Small -Exudate Type Serous -Wound Margin Distinct, Outline Attached -Granulation Amt None Present (0 %) -Slough/Fibrin Yes -Necrosis Amt Large (67-100%) -Necrotic Tissue Type Adherent Slough -Texture (Ashley-wound Skin Appearance) Scarring -Moisture (Ashley-wound Skin Appearance Dry/Scaly ) -Color (Ashley-wound Skin Appearance) Erythema Hemosiderin Staining -Temperature (Ashley-wound Skin No Abnormality Appearance) (Pt Warm) -Tenderness on Palpation (Ashley-wound No Skin Appearance) -Ulcer Cleansing Rinsed/ Irrigated with Saline -Foul Odor after Cleansing No -Anesthetic Used 5% Lidocaine Gel [Edema Assessment] -Lower Limb Edema Present Yes -Right Calf (cm) 37.6 -Right Ankle (cm) 20.5 -Left Calf (cm) 36 -Left Ankle (cm) 18.5 [facility] - Nurse 2 - General Ulcer CM Notes Start: 04/04/18 10:01 Freq: Status: Active Protocol: Activity Type Activity Date Activity User E-Sign Co-Sign Detail Recorded Client Recorded Date Recorded By Document 04/17/18 11:13 MW [id number] 04/17/18 11:19 MW 04/17/18 11:13 Wound Center Nurse 2 [Procedure/Treatment] #5- RT MEDIAL FOOT BUNION -Time 11:16 -Correct Patient Yes -Correct Side, Site, Position Yes -Correct Procedure Yes -Procedure Performed Yes -Type of Procedure Debridement -Clinical Debridement Subcutaneous -Post Debridement Size (cm) - Length 0.7 -Post Debridement Size (cm) - Width 0.4 -Post Debridement Size (cm) - Depth 0.1 -Total Square Cm 0.28 -Wound/Ulcer Outcome Not Healed -Ulcer Cleansing Rinsed/ Irrigated with Saline -Foul Odor after Cleansing No -Bioengineered Tissue No -Bleeding Controlled with Pressure -Offloading No -Treatment Response Procedure Tolerated Well #4- LT CALF POST TRAUMA -Time 11:14 -Correct Patient Yes -Correct Side, Site, Position Yes -Correct Procedure Yes -Procedure Performed Yes -Type of Procedure Debridement -Clinical Debridement Subcutaneous -Post Debridement Size (cm) - Length 1.0 -Post Debridement Size (cm) - Width 1.3 -Post Debridement Size (cm) - Depth 0.2 -Total Square Cm 1.30 -Wound/Ulcer Outcome Not Healed -Ulcer Cleansing Rinsed/ Irrigated with Saline -Foul Odor after Cleansing No -Bleeding Controlled with Pressure -Offloading No -Treatment Response Procedure Tolerated Well [See Physician Procedure note for Specifics] Pain Scale: 0-10 Numeric [Pain] -Is Patient Pain Free? Yes Musculoskeletal: No Muscle Wasting Neurological: Cranial nerves II-XII grossly intact Psych/Mental Status: Normal Affect Debridement Note Post-Debridement Measurements/Treatment [facility] - Nurse 2 - General Ulcer CM Notes Start: 04/04/18 10:01 Freq: Status: Active Protocol: Activity Type Activity Date Activity User E-Sign Co-Sign Detail Recorded Client Recorded Date Recorded By Document 04/04/18 10:44 MW [id number] 04/04/18 10:49 MW Document 02/21/19 13:13 MW [id number] 04/11/18 13:19 MW Document 04/17/18 11:13 MW [id number] 04/17/18 11:19 MW 04/04/18 04/11/18 04/17/18 10:44 13:13 11:13 Wound Center Nurse 2 #5- RT MEDIAL FOOT BUNION -Time 11:16 -Correct Patient Yes -Correct Side, Site, Position Yes -Correct Procedure Yes -Procedure Performed Yes -Type of Procedure Debridement -Clinical Debridement Subcutaneous -Post Debridement Size (cm) - Length 0.7 -Post Debridement Size (cm) - Width 0.4 -Post Debridement Size (cm) - Depth 0.1 -Total Square Cm 0.28 -Wound/Ulcer Outcome Not Healed -Ulcer Cleansing Rinsed/ Irrigated with Saline -Foul Odor after Cleansing No -Bioengineered Tissue No -Bleeding Controlled with Pressure -Offloading No -Treatment Response Procedure Tolerated Well #4- LT CALF POST TRAUMA -Time 10:47 13:14 11:14 -Correct Patient Yes Yes Yes -Correct Side, Site, Position Yes Yes Yes -Correct Procedure Yes Yes Yes -Procedure Performed Yes Yes Yes -Type of Procedure Debridement Debridement Debridement -Clinical Debridement Subcutaneous Subcutaneous Subcutaneous -Post Debridement Size (cm) - Length 1.5 1.3 1.0 -Post Debridement Size (cm) - Width 1.9 1.3 1.3 -Post Debridement Size (cm) - Depth 0.2 0.3 0.2 -Total Square Cm 2.85 1.69 1.30 -Wound/Ulcer Outcome Not Healed Not Healed Not Healed -Ulcer Cleansing Rinsed/ Rinsed/ Rinsed/ Irrigated with Irrigated with Irrigated with Saline Saline Saline -Foul Odor after Cleansing No No No -Bioengineered Tissue No No -Bleeding Controlled with Pressure Pressure Pressure -Offloading No No No -Treatment Response Procedure Procedure Procedure Tolerated Well Tolerated Well Tolerated Well Pain Scale: 0-10 Numeric Is Patient Pain Free? Yes Yes Yes Wound debrided: Left lower extremity Wound Grade/Stage: Stage II Type of Debridement: Excisional debridement Anesthesia Used: 4% Lidocaine Solution Depth: Down to and including healthy tissue, in the subcutaneous layer Percentage of wound debrided: 100 Instrument Used: 3mm curette Tissue Removed: Slough and devitalized tissue Severity: Fat Layer Exposed Amount of bleeding with debridement: Mild Bleeding Controlled with: Pressure Patient tolerated procedure well - Additional Wound Wound debrided: Right great toe Wound Grade/Stage: Stage II Type of Debridement: Excisional debridement Anesthesia Used: 4% Lidocaine Solution Depth: Down to and including healthy tissue, in the subcutaneous layer Percentage of wound debrided: 100 Instrument Used: 3mm curette Tissue Removed: Slough and devitalized tissue Severity: Fat Layer Exposed Amount of bleeding with debridement: Mild Bleeding Controlled with: Pressure Patient tolerated procedure: Patient tolerated procedure well Assessment/Plan Active Problems Wound of left lower extremity (Acute) Traumatic penetrating with fat layer exposed. Left leg cellulitis (Acute) Skin ulcer of right great toe with fat layer exposed (Acute) Venous stasis (Acute) PVD (peripheral vascular disease) (Acute) Assessment: Traumatic, penetrating left lower extremity wound with fat layer exposed. Right great toe ulcer. Hallux deformity right great toe. History of tobacco abuse. Plan: New right great toe ulcer due to hallux deformity. Debridement of both done as documented above. Procedure was well-tolerated. Continue Fibracol daily with Adaptic over top to left lower extremity and start Fibracol with Adaptic over top to right great toe. ABD/barrier dressing over right great toe. Single layer Tubigrip for edema management. Advised to elevate lower extremities when seated and in bed. Increased protein intake recommended. All her questions were answered and she was advised to call with any further questions or concerns. Follow-up in 1 week. This note was generated with [employer] dictation software. It may contain incorrect words, spelling, and punctuation that were not noted in checking the note before signing.
--- NOTE | 2018-04-17 11:53 | PN.PCM_ITS ---
(1) Wound of left lower extremity Status: Acute Current Visit: Yes Code(s): S81.802A - Unspecified open wound, left lower leg, initial encounter Comment: Traumatic penetrating with fat layer exposed. (2) PVD (peripheral vascular disease) Status: Acute Current Visit: Yes Code(s): I73.9 - Peripheral vascular disease, unspecified (3) Venous stasis Status: Acute Current Visit: Yes Code(s): I87.8 - Other specified disorders of veins (4) Left leg cellulitis Status: Acute Current Visit: Yes Code(s): L03.116 - Cellulitis of left lower limb (5) Skin ulcer of right great toe with fat layer exposed Status: Acute Current Visit: Yes Code(s): L97.512 - Non-pressure chronic ulcer of other part of right foot with fat layer exposed Type of Wound Chief Complaint: Left lower extremity wound. History of Wound: Ms. Lim is a 72yo who presented her to the wound center due to nonhealing left lower extremity wound. Sustained trauma to the left lower extremity on 18 March while transferring to a commode during her last hospital stay. She has been managed at home by home health care without any significant improvement and so it was recommended that she follow-up here. She denies any significant drainage. Denies chills, fever otherwise feeling of unwell. She states that she quit smoking 4 days ago and is currently on a nicotine patch. Progress of Wound: Left lower extremity cellulitis has improved. She presents with a new right great toe ulcer. She has a history of hallux deformity of her right great. - Physical Exam Vital Signs Temp Pulse Resp BP 96.6 F L 83 22 H 129/104 H 04/17/18 10:50 04/17/18 10:50 04/17/18 10:50 04/17/18 10:50 General: Alert, Oriented x3, Cooperative, No apparent distress HEENT: Atraumatic, Normocephalic Oral: Moist Mucosa Neck: Supple Lungs: Normal air movement Abdomen: Non Tender, Obese Extremities: No cyanosis, Edema Skin: Ulcer/ Wound Wound Measurements and Assessment WC - Nurse 1 - General Ulcer Measurement Start: 04/04/18 10:01 Freq: Status: Active Protocol: Activity Type Activity Date Activity User E-Sign Co-Sign Detail Recorded Client Recorded Date Recorded By Document 04/17/18 10:50 BMF [id number] 04/17/18 11:05 [facility] 04/17/18 10:50 Wound Center Nurse 1 [Ulcer Assessment] #5- RT MEDIAL FOOT BUNION -Combined with other wound No -Current Size (cm) - Length 0.4 -Current Size (cm) - Width 0.3 -Current Size (cm) - Depth 0.1 -Total Square Cm 0.12 -Date of Last Picture (Recall this 04/17/18 field) -Photo Taken Yes -Epithelialization None Present -Tunneling No -Undermining/Tunneling No -Circular Undermining No -Exudate Amt Small -Exudate Type Serous -Wound Margin Flat & Intact -Granulation Amt Small (1-33%) -Granulation Quality Red -Slough/Fibrin Yes -Necrosis Amt Large (67-100%) -Necrotic Tissue Type Adherent Slough -Texture (Ashley-wound Skin Appearance) Assessed -Moisture (Ashley-wound Skin Appearance Assessed ) -Color (Ashley-wound Skin Appearance) Erythema -Temperature (Ashley-wound Skin No Abnormality Appearance) (Pt Warm) -Tenderness on Palpation (Ashley-wound Yes Skin Appearance) -Ulcer Cleansing Rinsed/ Irrigated with Saline -Foul Odor after Cleansing No -Anesthetic Used 5% Lidocaine Gel #4- LT CALF POST TRAUMA -Combined with other wound No -Current Size (cm) - Length 1.4 -Current Size (cm) - Width 1.5 -Current Size (cm) - Depth 0.3 -Total Square Cm 2.10 -Photo Taken No -Epithelialization None Present -Tunneling No -Undermining/Tunneling No -Circular Undermining No -Exudate Amt Small -Exudate Type Serous -Wound Margin Distinct, Outline Attached -Granulation Amt None Present (0 %) -Slough/Fibrin Yes -Necrosis Amt Large (67-100%) -Necrotic Tissue Type Adherent Slough -Texture (Ashley-wound Skin Appearance) Scarring -Moisture (Ashley-wound Skin Appearance Dry/Scaly ) -Color (Ashley-wound Skin Appearance) Erythema Hemosiderin Staining -Temperature (Ashley-wound Skin No Abnormality Appearance) (Pt Warm) -Tenderness on Palpation (Ashley-wound No Skin Appearance) -Ulcer Cleansing Rinsed/ Irrigated with Saline -Foul Odor after Cleansing No -Anesthetic Used 5% Lidocaine Gel [Edema Assessment] -Lower Limb Edema Present Yes -Right Calf (cm) 37.6 -Right Ankle (cm) 20.5 -Left Calf (cm) 36 -Left Ankle (cm) 18.5 [facility] - Nurse 2 - General Ulcer CM Notes Start: 04/04/18 10:01 Freq: Status: Active Protocol: Activity Type Activity Date Activity User E-Sign Co-Sign Detail Recorded Client Recorded Date Recorded By Document 04/17/18 11:13 MW [id number] 04/17/18 11:19 MW 04/17/18 11:13 Wound Center Nurse 2 [Procedure/Treatment] #5- RT MEDIAL FOOT BUNION -Time 11:16 -Correct Patient Yes -Correct Side, Site, Position Yes -Correct Procedure Yes -Procedure Performed Yes -Type of Procedure Debridement -Clinical Debridement Subcutaneous -Post Debridement Size (cm) - Length 0.7 -Post Debridement Size (cm) - Width 0.4 -Post Debridement Size (cm) - Depth 0.1 -Total Square Cm 0.28 -Wound/Ulcer Outcome Not Healed -Ulcer Cleansing Rinsed/ Irrigated with Saline -Foul Odor after Cleansing No -Bioengineered Tissue No -Bleeding Controlled with Pressure -Offloading No -Treatment Response Procedure Tolerated Well #4- LT CALF POST TRAUMA -Time 11:14 -Correct Patient Yes -Correct Side, Site, Position Yes -Correct Procedure Yes -Procedure Performed Yes -Type of Procedure Debridement -Clinical Debridement Subcutaneous -Post Debridement Size (cm) - Length 1.0 -Post Debridement Size (cm) - Width 1.3 -Post Debridement Size (cm) - Depth 0.2 -Total Square Cm 1.30 -Wound/Ulcer Outcome Not Healed -Ulcer Cleansing Rinsed/ Irrigated with Saline -Foul Odor after Cleansing No -Bleeding Controlled with Pressure -Offloading No -Treatment Response Procedure Tolerated Well [See Physician Procedure note for Specifics] Pain Scale: 0-10 Numeric [Pain] -Is Patient Pain Free? Yes Musculoskeletal: No Muscle Wasting Neurological: Cranial nerves II-XII grossly intact Psych/Mental Status: Normal Affect Debridement Note Post-Debridement Measurements/Treatment SIVA - Nurse 2 - General Ulcer CM Notes Start: 04/04/18 10:01 Freq: Status: Active Protocol: Activity Type Activity Date Activity User E-Sign Co-Sign Detail Recorded Client Recorded Date Recorded By Document 04/04/18 10:44 MW [id number] 04/04/18 10:49 MW Document 02/21/19 13:13 MW [id number] 04/11/18 13:19 MW Document 04/17/18 11:13 MW [id number] 04/17/18 11:19 MW 04/04/18 04/11/18 04/17/18 10:44 13:13 11:13 Wound Center Nurse 2 #5- RT MEDIAL FOOT BUNION -Time 11:16 -Correct Patient Yes -Correct Side, Site, Position Yes -Correct Procedure Yes -Procedure Performed Yes -Type of Procedure Debridement -Clinical Debridement Subcutaneous -Post Debridement Size (cm) - Length 0.7 -Post Debridement Size (cm) - Width 0.4 -Post Debridement Size (cm) - Depth 0.1 -Total Square Cm 0.28 -Wound/Ulcer Outcome Not Healed -Ulcer Cleansing Rinsed/ Irrigated with Saline -Foul Odor after Cleansing No -Bioengineered Tissue No -Bleeding Controlled with Pressure -Offloading No -Treatment Response Procedure Tolerated Well #4- LT CALF POST TRAUMA -Time 10:47 13:14 11:14 -Correct Patient Yes Yes Yes -Correct Side, Site, Position Yes Yes Yes -Correct Procedure Yes Yes Yes -Procedure Performed Yes Yes Yes -Type of Procedure Debridement Debridement Debridement -Clinical Debridement Subcutaneous Subcutaneous Subcutaneous -Post Debridement Size (cm) - Length 1.5 1.3 1.0 -Post Debridement Size (cm) - Width 1.9 1.3 1.3 -Post Debridement Size (cm) - Depth 0.2 0.3 0.2 -Total Square Cm 2.85 1.69 1.30 -Wound/Ulcer Outcome Not Healed Not Healed Not Healed -Ulcer Cleansing Rinsed/ Rinsed/ Rinsed/ Irrigated with Irrigated with Irrigated with Saline Saline Saline -Foul Odor after Cleansing No No No -Bioengineered Tissue No No -Bleeding Controlled with Pressure Pressure Pressure -Offloading No No No -Treatment Response Procedure Procedure Procedure Tolerated Well Tolerated Well Tolerated Well Pain Scale: 0-10 Numeric Is Patient Pain Free? Yes Yes Yes Wound debrided: Left lower extremity Wound Grade/Stage: Stage II Type of Debridement: Excisional debridement Anesthesia Used: 4% Lidocaine Solution Depth: Down to and including healthy tissue, in the subcutaneous layer Percentage of wound debrided: 100 Instrument Used: 3mm curette Tissue Removed: Slough and devitalized tissue Severity: Fat Layer Exposed Amount of bleeding with debridement: Mild Bleeding Controlled with: Pressure Patient tolerated procedure well - Additional Wound Wound debrided: Right great toe Wound Grade/Stage: Stage II Type of Debridement: Excisional debridement Anesthesia Used: 4% Lidocaine Solution Depth: Down to and including healthy tissue, in the subcutaneous layer Percentage of wound debrided: 100 Instrument Used: 3mm curette Tissue Removed: Slough and devitalized tissue Severity: Fat Layer Exposed Amount of bleeding with debridement: Mild Bleeding Controlled with: Pressure Patient tolerated procedure: Patient tolerated procedure well Assessment/Plan Active Problems Wound of left lower extremity (Acute) Traumatic penetrating with fat layer exposed. Left leg cellulitis (Acute) Skin ulcer of right great toe with fat layer exposed (Acute) Venous stasis (Acute) PVD (peripheral vascular disease) (Acute) Assessment: Traumatic, penetrating left lower extremity wound with fat layer exposed. Right great toe ulcer. Hallux deformity right great toe. History of tobacco abuse. Plan: New right great toe ulcer due to hallux deformity. Debridement of both done as documented above. Procedure was well-tolerated. Continue Fibracol daily with Adaptic over top to left lower extremity and start Fibracol with Adaptic over top to right great toe. ABD/barrier dressing over right great toe. Single layer Tubigrip for edema management. Advised to elevate lower extremities when seated and in bed. Increased protein intake recommended. All her questions were answered and she was advised to call with any further questions or concerns. Follow-up in 1 week. This note was generated with [employer] dictation software. It may contain incorrect words, spelling, and punctuation that were not noted in checking the note before signing.
== END 2018-04-18 23:59 ==
LOC: WC 10:45
PROVIDERS: Family Provider Family Medicine; PCP Family Medicine; Visit Provider Internal Medicine
DX: S81.832A Puncture wound without foreign body, left lower leg, initial encounter (principal); X58.XXXA Exposure to other specified factors, initial encounter; I73.9 Peripheral vascular disease, unspecified; Z87.891 Personal history of nicotine dependence; J44.9 Chronic obstructive pulmonary disease, unspecified; I50.9 Heart failure, unspecified; Z79.899 Other long term (current) drug therapy; L03.116 Cellulitis of left lower limb; L97.512 Non-pressure chronic ulcer of other part of right foot with fat layer exposed
CPT/HCPCS: 11042; 99213; G0463

== ENCOUNTER 2018-05-15 11:00 | Outpatient (RCR) | payer MEDICARE, SELFPAY ==
[2018-04-19 00:13] VITALS: BP 129/104; PULSE 83; RESP 22; TEMP 35.9
[2018-04-24 10:57] VITALS: RESP 20; TEMP 36.2; BMI 37.8
--- NOTE | 2018-04-24 11:49 | PCM.WC.PN ---
(1) Skin ulcer of right great toe with fat layer exposed Status: Acute Current Visit: Yes Code(s): L97.512 - Non-pressure chronic ulcer of other part of right foot with fat layer exposed (2) Venous stasis Status: Acute Current Visit: Yes Code(s): I87.8 - Other specified disorders of veins (3) Wound of left lower extremity Status: Chronic Current Visit: Yes Code(s): S81.802A - Unspecified open wound, left lower leg, initial encounter Comment: Traumatic penetrating with fat layer exposed. (4) CHF (congestive heart failure) Status: Chronic Current Visit: No Code(s): I50.9 - Heart failure, unspecified (5) PVD (peripheral vascular disease) Status: Chronic Current Visit: Yes Code(s): I73.9 - Peripheral vascular disease, unspecified Type of Wound Chief Complaint: Left lower extremity wound. History of Wound: Ms. Lim is a 72yo who presented her to the wound center due to nonhealing left lower extremity wound. Sustained trauma to the left lower extremity on 18 March while transferring to a commode during her last hospital stay. She has been managed at home by home health care without any significant improvement and so it was recommended that she follow-up here. She denies any significant drainage. Denies chills, fever otherwise feeling of unwell. She states that she quit smoking 4 days ago and is currently on a nicotine patch. Progress of Wound: Stable wound and ulcer. No new concerns at this time. - Physical Exam Vital Signs Temp Pulse Resp BP 97.1 F L 83 20 H 129/104 H 04/24/18 10:57 04/19/18 00:13 04/24/18 10:57 04/19/18 00:13 General: Alert, Oriented x3, Cooperative, No apparent distress HEENT: Atraumatic, Normocephalic Oral: Moist Mucosa Neck: Supple Lungs: Normal air movement Abdomen: Non Tender Extremities: No cyanosis, Edema, Tenderness - Right Hallux. Skin: Ulcer/ Wound Wound Measurements and Assessment WC - Nurse 1 - General Ulcer Measurement Start: 04/24/18 10:57 Freq: Status: Active Protocol: Activity Type Activity Date Activity User E-Sign Co-Sign Detail Recorded Client Recorded Date Recorded By Document 04/24/18 10:57 [facility] [id number] 04/24/18 11:09 BMF 04/24/18 10:57 Wound Center Nurse 1 [Ulcer Assessment] #5- RT MEDIAL FOOT BUNION -Combined with other wound No -Current Size (cm) - Length 0.3 -Current Size (cm) - Width 0.2 -Current Size (cm) - Depth 0.2 -Total Square Cm 0.06 -Photo Taken No -Epithelialization Small 1-33% -Tunneling No -Undermining/Tunneling No -Circular Undermining No -Exudate Amt Small -Exudate Type Serous -Wound Margin Flat & Intact -Granulation Amt Small (1-33%) -Granulation Quality Red -Slough/Fibrin Yes -Necrosis Amt Large (67-100%) -Necrotic Tissue Type Adherent Slough -Texture (Ashley-wound Skin Appearance) Scarring -Moisture (Ashley-wound Skin Appearance Dry/Scaly ) -Color (Ashley-wound Skin Appearance) Erythema -Temperature (Ashley-wound Skin No Abnormality Appearance) (Pt Warm) -Tenderness on Palpation (Ashley-wound Yes Skin Appearance) -Ulcer Cleansing Rinsed/ Irrigated with Saline -Foul Odor after Cleansing No -Anesthetic Used 5% Lidocaine Gel #4- LT CALF POST TRAUMA -Combined with other wound No -Current Size (cm) - Length 0.9 -Current Size (cm) - Width 1.1 -Current Size (cm) - Depth 0.3 -Total Square Cm 0.99 -Photo Taken No -Epithelialization None Present -Tunneling No -Undermining/Tunneling No -Circular Undermining No -Exudate Amt Small -Exudate Type Serous -Wound Margin Flat & Intact -Granulation Amt Small (1-33%) -Granulation Quality Red -Slough/Fibrin Yes -Necrosis Amt Large (67-100%) -Necrotic Tissue Type Adherent Slough -Texture (Ashley-wound Skin Appearance) Scarring -Moisture (Ashley-wound Skin Appearance Dry/Scaly ) -Color (Ashley-wound Skin Appearance) Erythema -Temperature (Ashley-wound Skin No Abnormality Appearance) (Pt Warm) -Tenderness on Palpation (Ashley-wound No Skin Appearance) -Ulcer Cleansing Rinsed/ Irrigated with Saline -Foul Odor after Cleansing No -Anesthetic Used 5% Lidocaine Gel [Edema Assessment] -Lower Limb Edema Present Yes -Right Calf (cm) 35 -Right Ankle (cm) 19.2 -Left Calf (cm) 36.9 -Left Ankle (cm) 18.4 WC - Nurse 2 - General Ulcer CM Notes Start: 04/24/18 10:57 Freq: Status: Active Protocol: Activity Type Activity Date Activity User E-Sign Co-Sign Detail Recorded Client Recorded Date Recorded By Document 04/24/18 11:18 MW [id number] 04/24/18 11:25 MW 04/24/18 11:18 Wound Center Nurse 2 [Procedure/Treatment] #5- RT MEDIAL FOOT BUNION -Time 11:19 -Correct Patient Yes -Correct Side, Site, Position Yes -Correct Procedure Yes -Procedure Performed Yes -Type of Procedure Debridement -Clinical Debridement Subcutaneous -Post Debridement Size (cm) - Length 0.3 -Post Debridement Size (cm) - Width 0.2 -Post Debridement Size (cm) - Depth 0.1 -Total Square Cm 0.06 -Wound/Ulcer Outcome Not Healed -Ulcer Cleansing Rinsed/ Irrigated with Saline -Foul Odor after Cleansing No -Bioengineered Tissue No -Bleeding Controlled with Pressure -Offloading No -Treatment Response Procedure Tolerated Well #4- LT CALF POST TRAUMA -Time 11:20 -Correct Patient Yes -Correct Side, Site, Position Yes -Correct Procedure Yes -Procedure Performed Yes -Type of Procedure Debridement -Clinical Debridement Subcutaneous -Post Debridement Size (cm) - Length 1.0 -Post Debridement Size (cm) - Width 1.0 -Post Debridement Size (cm) - Depth 0.2 -Total Square Cm 1.00 -Wound/Ulcer Outcome Not Healed -Ulcer Cleansing Rinsed/ Irrigated with Saline -Foul Odor after Cleansing No -Bioengineered Tissue No -Bleeding Controlled with Pressure -Offloading No -Treatment Response Procedure Tolerated Well [See Physician Procedure note for Specifics] Pain Scale: 0-10 Numeric [Pain] -Is Patient Pain Free? Yes Musculoskeletal: No Muscle Wasting Neurological: Cranial nerves II-XII grossly intact Psych/Mental Status: Normal Affect Debridement Note Post-Debridement Measurements/Treatment WC - Nurse 2 - General Ulcer CM Notes Start: 04/24/18 10:57 Freq: Status: Active Protocol: Activity Type Activity Date Activity User E-Sign Co-Sign Detail Recorded Client Recorded Date Recorded By Document 04/24/18 11:18 MW [id number] 04/24/18 11:25 MW 04/24/18 11:18 Wound Center Nurse 2 #5- RT MEDIAL FOOT BUNION -Time 11:19 -Correct Patient Yes -Correct Side, Site, Position Yes -Correct Procedure Yes -Procedure Performed Yes -Type of Procedure Debridement -Clinical Debridement Subcutaneous -Post Debridement Size (cm) - Length 0.3 -Post Debridement Size (cm) - Width 0.2 -Post Debridement Size (cm) - Depth 0.1 -Total Square Cm 0.06 -Wound/Ulcer Outcome Not Healed -Ulcer Cleansing Rinsed/ Irrigated with Saline -Foul Odor after Cleansing No -Bioengineered Tissue No -Bleeding Controlled with Pressure -Offloading No -Treatment Response Procedure Tolerated Well #4- LT CALF POST TRAUMA -Time 11:20 -Correct Patient Yes -Correct Side, Site, Position Yes -Correct Procedure Yes -Procedure Performed Yes -Type of Procedure Debridement -Clinical Debridement Subcutaneous -Post Debridement Size (cm) - Length 1.0 -Post Debridement Size (cm) - Width 1.0 -Post Debridement Size (cm) - Depth 0.2 -Total Square Cm 1.00 -Wound/Ulcer Outcome Not Healed -Ulcer Cleansing Rinsed/ Irrigated with Saline -Foul Odor after Cleansing No -Bioengineered Tissue No -Bleeding Controlled with Pressure -Offloading No -Treatment Response Procedure Tolerated Well Pain Scale: 0-10 Numeric Is Patient Pain Free? Yes Wound debrided: Left lower extremity Wound Grade/Stage: Stage II Type of Debridement: Excisional debridement Anesthesia Used: 4% Lidocaine Solution Depth: Down to and including healthy tissue, in the subcutaneous layer Percentage of wound debrided: 100 Instrument Used: 5mm curette Tissue Removed: Slough and devitalized tissue Severity: Fat Layer Exposed Amount of bleeding with debridement: Mild Bleeding Controlled with: Pressure Patient tolerated procedure well - Additional Wound Wound debrided: Right great toe Wound Grade/Stage: Stage II Type of Debridement: Excisional debridement Anesthesia Used: 4% Lidocaine Solution Depth: Down to and including healthy tissue, in the subcutaneous layer Percentage of wound debrided: 100 Instrument Used: 3mm curette Tissue Removed: Slough and devitalized tissue Severity: Fat Layer Exposed Amount of bleeding with debridement: Mild Bleeding Controlled with: Pressure Patient tolerated procedure: Patient tolerated procedure well Assessment/Plan Active Problems Wound of left lower extremity (Chronic) Traumatic penetrating with fat layer exposed. Skin ulcer of right great toe with fat layer exposed (Acute) Venous stasis (Acute) PVD (peripheral vascular disease) (Chronic) Assessment: Traumatic, penetrating left lower extremity wound with fat layer exposed. Right great toe ulcer. Hallux deformity right great toe. History of tobacco abuse. Plan: Both improving. No new concerns at this time. Still has very significant tenderness surrounding her hallux. No concerns for infection. 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 Debridement of both done as documented above. Procedure was well-tolerated. Continue Fibracol daily with Adaptic over top to left lower extremity and right great toe. ABD/barrier dressing over right great toe. Single layer Tubigrip for edema management. Advised to elevate lower extremities when seated and in bed. Increased protein intake recommended. She was also asked to follow-up with her vascular surgeon. All her questions were answered and she was advised to call with any further questions or concerns. Follow-up in 1 week. This note was generated with [employer] dictation software. It may contain incorrect words, spelling, and punctuation that were not noted in checking the note before signing.
--- NOTE | 2018-04-24 11:54 | PN.PCM_ITS ---
(1) Skin ulcer of right great toe with fat layer exposed Status: Acute Current Visit: Yes Code(s): L97.512 - Non-pressure chronic ulcer of other part of right foot with fat layer exposed (2) Venous stasis Status: Acute Current Visit: Yes Code(s): I87.8 - Other specified disorders of veins (3) Wound of left lower extremity Status: Chronic Current Visit: Yes Code(s): S81.802A - Unspecified open wound, left lower leg, initial encounter Comment: Traumatic penetrating with fat layer exposed. (4) CHF (congestive heart failure) Status: Chronic Current Visit: No Code(s): I50.9 - Heart failure, unspecified (5) PVD (peripheral vascular disease) Status: Chronic Current Visit: Yes Code(s): I73.9 - Peripheral vascular disease, unspecified Type of Wound Chief Complaint: Left lower extremity wound. History of Wound: Ms. Lim is a 72yo who presented her to the wound center due to nonhealing left lower extremity wound. Sustained trauma to the left lower extremity on 18 March while transferring to a commode during her last hospital stay. She has been managed at home by home health care without any significant improvement and so it was recommended that she follow-up here. She denies any significant drainage. Denies chills, fever otherwise feeling of unwell. She states that she quit smoking 4 days ago and is currently on a nicotine patch. Progress of Wound: Stable wound and ulcer. No new concerns at this time. - Physical Exam Vital Signs Temp Pulse Resp BP 97.1 F L 83 20 H 129/104 H 04/24/18 10:57 04/19/18 00:13 04/24/18 10:57 04/19/18 00:13 General: Alert, Oriented x3, Cooperative, No apparent distress HEENT: Atraumatic, Normocephalic Oral: Moist Mucosa Neck: Supple Lungs: Normal air movement Abdomen: Non Tender Extremities: No cyanosis, Edema, Tenderness - Right Hallux. Skin: Ulcer/ Wound Wound Measurements and Assessment WC - Nurse 1 - General Ulcer Measurement Start: 04/24/18 10:57 Freq: Status: Active Protocol: Activity Type Activity Date Activity User E-Sign Co-Sign Detail Recorded Client Recorded Date Recorded By Document 04/24/18 10:57 [facility] [id number] 04/24/18 11:09 BMF 04/24/18 10:57 Wound Center Nurse 1 [Ulcer Assessment] #5- RT MEDIAL FOOT BUNION -Combined with other wound No -Current Size (cm) - Length 0.3 -Current Size (cm) - Width 0.2 -Current Size (cm) - Depth 0.2 -Total Square Cm 0.06 -Photo Taken No -Epithelialization Small 1-33% -Tunneling No -Undermining/Tunneling No -Circular Undermining No -Exudate Amt Small -Exudate Type Serous -Wound Margin Flat & Intact -Granulation Amt Small (1-33%) -Granulation Quality Red -Slough/Fibrin Yes -Necrosis Amt Large (67-100%) -Necrotic Tissue Type Adherent Slough -Texture (Ashley-wound Skin Appearance) Scarring -Moisture (Ashley-wound Skin Appearance Dry/Scaly ) -Color (Ashley-wound Skin Appearance) Erythema -Temperature (Ashley-wound Skin No Abnormality Appearance) (Pt Warm) -Tenderness on Palpation (Ashley-wound Yes Skin Appearance) -Ulcer Cleansing Rinsed/ Irrigated with Saline -Foul Odor after Cleansing No -Anesthetic Used 5% Lidocaine Gel #4- LT CALF POST TRAUMA -Combined with other wound No -Current Size (cm) - Length 0.9 -Current Size (cm) - Width 1.1 -Current Size (cm) - Depth 0.3 -Total Square Cm 0.99 -Photo Taken No -Epithelialization None Present -Tunneling No -Undermining/Tunneling No -Circular Undermining No -Exudate Amt Small -Exudate Type Serous -Wound Margin Flat & Intact -Granulation Amt Small (1-33%) -Granulation Quality Red -Slough/Fibrin Yes -Necrosis Amt Large (67-100%) -Necrotic Tissue Type Adherent Slough -Texture (Ashley-wound Skin Appearance) Scarring -Moisture (Ashley-wound Skin Appearance Dry/Scaly ) -Color (Ashley-wound Skin Appearance) Erythema -Temperature (Ashley-wound Skin No Abnormality Appearance) (Pt Warm) -Tenderness on Palpation (Ashley-wound No Skin Appearance) -Ulcer Cleansing Rinsed/ Irrigated with Saline -Foul Odor after Cleansing No -Anesthetic Used 5% Lidocaine Gel [Edema Assessment] -Lower Limb Edema Present Yes -Right Calf (cm) 35 -Right Ankle (cm) 19.2 -Left Calf (cm) 36.9 -Left Ankle (cm) 18.4 WC - Nurse 2 - General Ulcer CM Notes Start: 04/24/18 10:57 Freq: Status: Active Protocol: Activity Type Activity Date Activity User E-Sign Co-Sign Detail Recorded Client Recorded Date Recorded By Document 04/24/18 11:18 MW [id number] 04/24/18 11:25 MW 04/24/18 11:18 Wound Center Nurse 2 [Procedure/Treatment] #5- RT MEDIAL FOOT BUNION -Time 11:19 -Correct Patient Yes -Correct Side, Site, Position Yes -Correct Procedure Yes -Procedure Performed Yes -Type of Procedure Debridement -Clinical Debridement Subcutaneous -Post Debridement Size (cm) - Length 0.3 -Post Debridement Size (cm) - Width 0.2 -Post Debridement Size (cm) - Depth 0.1 -Total Square Cm 0.06 -Wound/Ulcer Outcome Not Healed -Ulcer Cleansing Rinsed/ Irrigated with Saline -Foul Odor after Cleansing No -Bioengineered Tissue No -Bleeding Controlled with Pressure -Offloading No -Treatment Response Procedure Tolerated Well #4- LT CALF POST TRAUMA -Time 11:20 -Correct Patient Yes -Correct Side, Site, Position Yes -Correct Procedure Yes -Procedure Performed Yes -Type of Procedure Debridement -Clinical Debridement Subcutaneous -Post Debridement Size (cm) - Length 1.0 -Post Debridement Size (cm) - Width 1.0 -Post Debridement Size (cm) - Depth 0.2 -Total Square Cm 1.00 -Wound/Ulcer Outcome Not Healed -Ulcer Cleansing Rinsed/ Irrigated with Saline -Foul Odor after Cleansing No -Bioengineered Tissue No -Bleeding Controlled with Pressure -Offloading No -Treatment Response Procedure Tolerated Well [See Physician Procedure note for Specifics] Pain Scale: 0-10 Numeric [Pain] -Is Patient Pain Free? Yes Musculoskeletal: No Muscle Wasting Neurological: Cranial nerves II-XII grossly intact Psych/Mental Status: Normal Affect Debridement Note Post-Debridement Measurements/Treatment WC - Nurse 2 - General Ulcer CM Notes Start: 04/24/18 10:57 Freq: Status: Active Protocol: Activity Type Activity Date Activity User E-Sign Co-Sign Detail Recorded Client Recorded Date Recorded By Document 04/24/18 11:18 MW [id number] 04/24/18 11:25 MW 04/24/18 11:18 Wound Center Nurse 2 #5- RT MEDIAL FOOT BUNION -Time 11:19 -Correct Patient Yes -Correct Side, Site, Position Yes -Correct Procedure Yes -Procedure Performed Yes -Type of Procedure Debridement -Clinical Debridement Subcutaneous -Post Debridement Size (cm) - Length 0.3 -Post Debridement Size (cm) - Width 0.2 -Post Debridement Size (cm) - Depth 0.1 -Total Square Cm 0.06 -Wound/Ulcer Outcome Not Healed -Ulcer Cleansing Rinsed/ Irrigated with Saline -Foul Odor after Cleansing No -Bioengineered Tissue No -Bleeding Controlled with Pressure -Offloading No -Treatment Response Procedure Tolerated Well #4- LT CALF POST TRAUMA -Time 11:20 -Correct Patient Yes -Correct Side, Site, Position Yes -Correct Procedure Yes -Procedure Performed Yes -Type of Procedure Debridement -Clinical Debridement Subcutaneous -Post Debridement Size (cm) - Length 1.0 -Post Debridement Size (cm) - Width 1.0 -Post Debridement Size (cm) - Depth 0.2 -Total Square Cm 1.00 -Wound/Ulcer Outcome Not Healed -Ulcer Cleansing Rinsed/ Irrigated with Saline -Foul Odor after Cleansing No -Bioengineered Tissue No -Bleeding Controlled with Pressure -Offloading No -Treatment Response Procedure Tolerated Well Pain Scale: 0-10 Numeric Is Patient Pain Free? Yes Wound debrided: Left lower extremity Wound Grade/Stage: Stage II Type of Debridement: Excisional debridement Anesthesia Used: 4% Lidocaine Solution Depth: Down to and including healthy tissue, in the subcutaneous layer Percentage of wound debrided: 100 Instrument Used: 5mm curette Tissue Removed: Slough and devitalized tissue Severity: Fat Layer Exposed Amount of bleeding with debridement: Mild Bleeding Controlled with: Pressure Patient tolerated procedure well - Additional Wound Wound debrided: Right great toe Wound Grade/Stage: Stage II Type of Debridement: Excisional debridement Anesthesia Used: 4% Lidocaine Solution Depth: Down to and including healthy tissue, in the subcutaneous layer Percentage of wound debrided: 100 Instrument Used: 3mm curette Tissue Removed: Slough and devitalized tissue Severity: Fat Layer Exposed Amount of bleeding with debridement: Mild Bleeding Controlled with: Pressure Patient tolerated procedure: Patient tolerated procedure well Assessment/Plan Active Problems Wound of left lower extremity (Chronic) Traumatic penetrating with fat layer exposed. Skin ulcer of right great toe with fat layer exposed (Acute) Venous stasis (Acute) PVD (peripheral vascular disease) (Chronic) Assessment: Traumatic, penetrating left lower extremity wound with fat layer exposed. Right great toe ulcer. Hallux deformity right great toe. History of tobacco abuse. Plan: Both improving. No new concerns at this time. Still has very significant tenderness surrounding her hallux. No concerns for infection. She did follow- up with her [employer] sales consultant and due to a history of peripheral arterial disease he is not open to hallux surgery. Debridement of both done as documented above. Procedure was well-tolerated. Continue Fibracol daily with Adaptic over top to left lower extremity and right great toe. ABD/barrier dressing over right great toe. Single layer Tubigrip for edema management. Advised to elevate lower extremities when seated and in bed. Increased protein intake recommended. She was also asked to follow-up with her vascular surgeon. All her questions were answered and she was advised to call with any further questions or concerns. Follow-up in 1 week. This note was generated with [employer] dictation software. It may contain incorrect words, spelling, and punctuation that were not noted in checking the note before signing.
[2018-05-08 11:20] VITALS: BP 110/72; PULSE 83; RESP 20; TEMP 36.3; BMI 37.8
--- NOTE | 2018-05-08 12:02 | PN.PCM_ITS ---
(1) Skin ulcer of right great toe with fat layer exposed Status: Acute Current Visit: Yes Code(s): L97.512 - Non-pressure chronic ulcer of other part of right foot with fat layer exposed (2) Venous stasis Status: Acute Current Visit: Yes Code(s): I87.8 - Other specified disorders of veins (3) Wound of left lower extremity Status: Chronic Current Visit: Yes Code(s): S81.802A - Unspecified open wound, left lower leg, initial encounter Comment: Traumatic penetrating with fat layer exposed. (4) CHF (congestive heart failure) Status: Chronic Current Visit: No Code(s): I50.9 - Heart failure, unspecified (5) PVD (peripheral vascular disease) Status: Chronic Current Visit: Yes Code(s): I73.9 - Peripheral vascular disease, unspecified Type of Wound Chief Complaint: Left lower extremity wound. History of Wound: Ms. Lim is a 72yo who presented her to the wound center due to nonhealing left lower extremity wound. Sustained trauma to the left lower extremity on 18 March while transferring to a commode during her last hospital stay. She has been managed at home by home health care without any significant improvement and so it was recommended that she follow-up here. She denies any significant drainage. Denies chills, fever otherwise feeling of unwell. She states that she quit smoking 4 days ago and is currently on a nicotine patch. Progress of Wound: Right great toe is healed. No new concerns at this time. - Physical Exam Vital Signs Temp Pulse Resp BP 97.4 F L 83 20 H 110/72 05/08/18 11:20 05/08/18 11:20 05/08/18 11:20 05/08/18 11:20 General: Alert, Oriented x3, Cooperative, No apparent distress HEENT: Atraumatic, Normocephalic Oral: Moist Mucosa Neck: Supple Lungs: Normal air movement Abdomen: Non Tender Extremities: No cyanosis, Edema Skin: Ulcer/ Wound Wound Measurements and Assessment WC - Nurse 1 - General Ulcer Measurement Start: 04/24/18 10:57 Freq: Status: Active Protocol: Activity Type Activity Date Activity User E-Sign Co-Sign Detail Recorded Client Recorded Date Recorded By Document 05/08/18 11:20 [facility] [id number] 05/08/18 11:28 BM 05/08/18 11:20 Wound Center Nurse 1 [Ulcer Assessment] #5- RT MEDIAL FOOT BUNION -Combined with other wound No -Current Size (cm) - Length 0.1 -Current Size (cm) - Width 0.1 -Current Size (cm) - Depth 0.1 -Total Square Cm 0.01 -Date of Last Picture (Recall this 05/08/18 field) -Photo Taken Yes -Epithelialization Large 67-100% -Temperature (Ashley-wound Skin No Abnormality Appearance) (Pt Warm) -Tenderness on Palpation (Ashley-wound No Skin Appearance) -Ulcer Cleansing Rinsed/ Irrigated with Saline -Foul Odor after Cleansing No -Anesthetic Used 5% Lidocaine Gel #4- LT CALF POST TRAUMA -Combined with other wound No -Current Size (cm) - Length 0.7 -Current Size (cm) - Width 0.8 -Current Size (cm) - Depth 0.2 -Total Square Cm 0.56 -Photo Taken No -Epithelialization None Present -Tunneling No -Undermining/Tunneling No -Circular Undermining No -Exudate Amt Small -Exudate Type Serosanguineous -Wound Margin Distinct, Outline Attached -Granulation Amt Small (1-33%) -Granulation Quality Red -Slough/Fibrin Yes -Necrosis Amt Large (67-100%) -Necrotic Tissue Type Adherent Slough -Texture (Ashley-wound Skin Appearance) Scarring -Moisture (Ashley-wound Skin Appearance Dry/Scaly ) -Color (Ashley-wound Skin Appearance) Assessed -Temperature (Ashley-wound Skin No Abnormality Appearance) (Pt Warm) -Tenderness on Palpation (Ashley-wound No Skin Appearance) -Ulcer Cleansing Rinsed/ Irrigated with Saline -Foul Odor after Cleansing No -Anesthetic Used 5% Lidocaine Gel [Edema Assessment] -Lower Limb Edema Present Yes -Right Calf (cm) 33.1 -Right Ankle (cm) 19.6 -Left Calf (cm) 33.4 -Left Ankle (cm) 18.3 WC - Nurse 2 - General Ulcer CM Notes Start: 04/24/18 10:57 Freq: Status: Active Protocol: Activity Type Activity Date Activity User E-Sign Co-Sign Detail Recorded Client Recorded Date Recorded By Document 05/08/18 11:40 MW [id number] 05/08/18 11:43 MW 05/08/18 11:40 Wound Center Nurse 2 [Procedure/Treatment] #5- RT MEDIAL FOOT BUNION -Time 11:41 -Correct Patient Yes -Correct Side, Site, Position Yes -Correct Procedure Yes -Procedure Performed No -Post Debridement Size (cm) - Length 0 -Post Debridement Size (cm) - Width 0 -Post Debridement Size (cm) - Depth 0 -Total Square Cm 0 -Wound/Ulcer Outcome Healed- Epithelialized #4- LT CALF POST TRAUMA -Time 11:41 -Correct Patient Yes -Correct Side, Site, Position Yes -Correct Procedure Yes -Procedure Performed Yes -Type of Procedure Debridement -Clinical Debridement Subcutaneous -Post Debridement Size (cm) - Length 0.7 -Post Debridement Size (cm) - Width 0.5 -Post Debridement Size (cm) - Depth 0.2 -Total Square Cm 0.35 -Wound/Ulcer Outcome Not Healed -Ulcer Cleansing Rinsed/ Irrigated with Saline -Foul Odor after Cleansing No -Bioengineered Tissue No -Bleeding Controlled with Pressure -Offloading No -Treatment Response Procedure Tolerated Well [See Physician Procedure note for Specifics] Pain Scale: 0-10 Numeric [Pain] -Is Patient Pain Free? Yes Musculoskeletal: No Muscle Wasting Neurological: Cranial nerves II-XII grossly intact Psych/Mental Status: Normal Affect Debridement Note Post-Debridement Measurements/Treatment WC - Nurse 2 - General Ulcer CM Notes Start: 04/24/18 10:57 Freq: Status: Active Protocol: Activity Type Activity Date Activity User E-Sign Co-Sign Detail Recorded Client Recorded Date Recorded By Document 04/24/18 11:18 MW [id number] 04/24/18 11:25 MW Document 05/08/18 11:40 MW [id number] 05/08/18 11:43 MW 04/24/18 05/08/18 11:18 11:40 Wound Center Nurse 2 #5- RT MEDIAL FOOT BUNION -Time 11:19 11:41 -Correct Patient Yes Yes -Correct Side, Site, Position Yes Yes -Correct Procedure Yes Yes -Procedure Performed Yes No -Type of Procedure Debridement -Clinical Debridement Subcutaneous -Post Debridement Size (cm) - Length 0.3 0 -Post Debridement Size (cm) - Width 0.2 0 -Post Debridement Size (cm) - Depth 0.1 0 -Total Square Cm 0.06 0 -Wound/Ulcer Outcome Not Healed Healed- Epithelialized -Ulcer Cleansing Rinsed/ Irrigated with Saline -Foul Odor after Cleansing No -Bioengineered Tissue No -Bleeding Controlled with Pressure -Offloading No -Treatment Response Procedure Tolerated Well #4- LT CALF POST TRAUMA -Time 11:20 11:41 -Correct Patient Yes Yes -Correct Side, Site, Position Yes Yes -Correct Procedure Yes Yes -Procedure Performed Yes Yes -Type of Procedure Debridement Debridement -Clinical Debridement Subcutaneous Subcutaneous -Post Debridement Size (cm) - Length 1.0 0.7 -Post Debridement Size (cm) - Width 1.0 0.5 -Post Debridement Size (cm) - Depth 0.2 0.2 -Total Square Cm 1.00 0.35 -Wound/Ulcer Outcome Not Healed Not Healed -Ulcer Cleansing Rinsed/ Rinsed/ Irrigated with Irrigated with Saline Saline -Foul Odor after Cleansing No No -Bioengineered Tissue No No -Bleeding Controlled with Pressure Pressure -Offloading No No -Treatment Response Procedure Procedure Tolerated Well Tolerated Well Pain Scale: 0-10 Numeric Is Patient Pain Free? Yes Yes Wound debrided: Left lower extremity Wound Grade/Stage: Stage II Type of Debridement: Excisional debridement Anesthesia Used: 4% Lidocaine Solution Depth: Down to and including healthy tissue, in the subcutaneous layer Percentage of wound debrided: 100 Instrument Used: 3mm curette Tissue Removed: Slough and devitalized tissue Severity: Fat Layer Exposed Amount of bleeding with debridement: Mild Bleeding Controlled with: Pressure Patient tolerated procedure well Assessment/Plan Active Problems Wound of left lower extremity (Chronic) Traumatic penetrating with fat layer exposed. Skin ulcer of right great toe with fat layer exposed (Acute) Venous stasis (Acute) PVD (peripheral vascular disease) (Chronic) Assessment: Traumatic, penetrating left lower extremity wound with fat layer exposed. Right great toe ulcer. Hallux deformity right great toe. History of tobacco abuse. Plan: Right great toe is healed and left lower extremity is improving. Debridement of both done as documented above. Procedure was well-tolerated. Continue Fibracol daily with Adaptic over top to left lower extremity. Continue ABD/barrier dressing over right great toe. Single layer Tubigrip for edema management. Advised to elevate lower extremities when seated and in bed. Increased protein intake recommended. She was also asked to follow-up with her vascular surgeon. All her questions were answered and she was advised to call with any further questions or concerns. Follow-up in 1 week. This note was generated with [employer] software. It may contain incorrect words, spelling, and punctuation that were not noted in checking the note before signing.
[2018-05-15 10:59] VITALS: BP 141/49; PULSE 87; RESP 20; TEMP 35.9; BMI 37.8
--- NOTE | 2018-05-15 12:11 | PCM.WC.PN ---
(1) Skin ulcer of right great toe with fat layer exposed Status: Acute Current Visit: Yes Code(s): L97.512 - Non-pressure chronic ulcer of other part of right foot with fat layer exposed (2) Venous stasis Status: Acute Current Visit: Yes Code(s): I87.8 - Other specified disorders of veins (3) Wound of left lower extremity Status: Chronic Current Visit: Yes Code(s): S81.802A - Unspecified open wound, left lower leg, initial encounter Comment: Traumatic penetrating with fat layer exposed. (4) CHF (congestive heart failure) Status: Chronic Current Visit: No Qualifiers: Heart failure type: systolic Heart failure chronicity: chronic Qualified Code(s): I50.22 - Chronic systolic (congestive) heart failure Code(s): I50.9 - Heart failure, unspecified (5) PVD (peripheral vascular disease) Status: Chronic Current Visit: Yes Code(s): I73.9 - Peripheral vascular disease, unspecified Type of Wound Chief Complaint: Left lower extremity wound. History of Wound: Ms. Lim is a 72yo who presented her to the wound center due to nonhealing left lower extremity wound. Sustained trauma to the left lower extremity on 18 March while transferring to a commode during her last hospital stay. She has been managed at home by home health care without any significant improvement and so it was recommended that she follow-up here. She denies any significant drainage. Denies chills, fever otherwise feeling of unwell. She states that she quit smoking 4 days ago and is currently on a nicotine patch. Progress of Wound: Left lower extremity wound is stable. New bilateral superficial ulcers. Patient declines management. - Physical Exam Vital Signs Temp Pulse Resp BP 96.6 F L 87 20 H 141/49 H 05/15/18 10:59 05/15/18 10:59 05/15/18 10:59 05/15/18 10:59 General: Alert, Oriented x3, Cooperative, No apparent distress HEENT: Atraumatic, Normocephalic Oral: Moist Mucosa Neck: Supple Lungs: Normal air movement Abdomen: Non Tender Extremities: No cyanosis, Edema Skin: Ulcer/ Wound Wound Measurements and Assessment WC - Nurse 1 - General Ulcer Measurement Start: 04/24/18 10:57 Freq: Status: Active Protocol: Activity Type Activity Date Activity User E-Sign Co-Sign Detail Recorded Client Recorded Date Recorded By Document 05/15/18 10:59 [facility] [id number] 05/15/18 11:12 [facility] 05/15/18 10:59 Wound Center Nurse 1 [Ulcer Assessment] #7- R MATIAS INFERIOR -Combined with other wound No -Current Size (cm) - Length 0.6 -Current Size (cm) - Width 0.8 -Current Size (cm) - Depth 0.2 -Total Square Cm 0.48 -Date of Last Picture (Recall this 05/15/18 field) -Photo Taken Yes -Epithelialization None Present -Tunneling No -Undermining/Tunneling No -Circular Undermining No -Exudate Amt Small -Exudate Type Serous -Wound Margin Flat & Intact -Granulation Amt Medium (34-66%) -Granulation Quality [place] -Slough/Fibrin Yes -Necrosis Amt Medium (34-66%) -Necrotic Tissue Type Adherent Slough -Texture (Ashley-wound Skin Appearance) Assessed Scarring -Moisture (Ashley-wound Skin Appearance Assessed ) -Color (Ashley-wound Skin Appearance) Assessed Erythema -Temperature (Ashley-wound Skin No Abnormality Appearance) (Pt Warm) -Tenderness on Palpation (Ashley-wound No Skin Appearance) -Ulcer Cleansing Rinsed/ Irrigated with Saline -Foul Odor after Cleansing No -Anesthetic Used 5% Lidocaine Gel #6- R MATIAS SUPERIOR -Combined with other wound No -Current Size (cm) - Length 0.5 -Current Size (cm) - Width 0.5 -Current Size (cm) - Depth 0.1 -Total Square Cm 0.25 -Date of Last Picture (Recall this 05/15/18 field) -Photo Taken Yes -Epithelialization None Present -Tunneling No -Undermining/Tunneling No -Circular Undermining No -Exudate Amt Small -Exudate Type Serous -Wound Margin Flat & Intact -Granulation Amt Large (67-100%) -Granulation Quality Red -Slough/Fibrin No -Necrosis Amt None Present (0 %) -Structure Exposed None/Limited to Skin Breakdown -Texture (Ashley-wound Skin Appearance) Assessed -Moisture (Ashley-wound Skin Appearance Assessed ) Weeping -Color (Ashley-wound Skin Appearance) Assessed Erythema -Temperature (Ashley-wound Skin No Abnormality Appearance) (Pt Warm) -Tenderness on Palpation (Ashley-wound No Skin Appearance) -Ulcer Cleansing Rinsed/ Irrigated with Saline -Foul Odor after Cleansing No -Anesthetic Used 5% Lidocaine Gel #4- LT CALF POST TRAUMA -Combined with other wound No -Current Size (cm) - Length 0.6 -Current Size (cm) - Width 0.7 -Current Size (cm) - Depth 0.2 -Total Square Cm 0.42 -Date of Last Picture (Recall this 05/15/18 field) -Photo Taken Yes -Epithelialization None Present -Tunneling No -Undermining/Tunneling No -Circular Undermining No -Exudate Amt Small -Exudate Type Serosanguineous -Wound Margin Distinct, Outline Attached -Granulation Amt Small (1-33%) -Granulation Quality Red -Slough/Fibrin Yes -Necrosis Amt Medium (34-66%) -Necrotic Tissue Type Adherent Slough -Texture (Ashley-wound Skin Appearance) Assessed Scarring -Moisture (Ashley-wound Skin Appearance Assessed ) Dry/Scaly -Color (Ashley-wound Skin Appearance) Assessed -Temperature (Ashley-wound Skin No Abnormality Appearance) (Pt Warm) -Tenderness on Palpation (Ashley-wound No Skin Appearance) -Ulcer Cleansing Rinsed/ Irrigated with Saline -Foul Odor after Cleansing No -Anesthetic Used 5% Lidocaine Gel [Edema Assessment] -Right Calf (cm) 34.4 -Right Ankle (cm) 18.5 -Left Calf (cm) 34 -Left Ankle (cm) 18 WC - Nurse 2 - General Ulcer CM Notes Start: 04/24/18 10:57 Freq: Status: Active Protocol: Activity Type Activity Date Activity User E-Sign Co-Sign Detail Recorded Client Recorded Date Recorded By Document 05/15/18 12:04 MW [id number] 05/15/18 12:09 MW 05/15/18 12:04 Wound Center Nurse 2 [Procedure/Treatment] #7- R MATIAS INFERIOR -Time 12:04 -Correct Patient Yes -Correct Side, Site, Position Yes -Correct Procedure Yes -Procedure Performed No -Wound/Ulcer Outcome Not Healed #6- R MATIAS SUPERIOR -Time 12:04 -Correct Patient Yes -Correct Side, Site, Position Yes -Correct Procedure Yes -Procedure Performed No -Wound/Ulcer Outcome Not Healed #4- LT CALF POST TRAUMA -Time 12:05 -Correct Patient Yes -Correct Side, Site, Position Yes -Correct Procedure Yes -Procedure Performed Yes -Type of Procedure Debridement -Clinical Debridement Subcutaneous -Post Debridement Size (cm) - Length 0.4 -Post Debridement Size (cm) - Width 0.5 -Post Debridement Size (cm) - Depth 0.1 -Total Square Cm 0.20 -Wound/Ulcer Outcome Not Healed -Ulcer Cleansing Rinsed/ Irrigated with Saline -Foul Odor after Cleansing No -Bioengineered Tissue No -Bleeding Controlled with Pressure -Offloading No -Treatment Response Procedure Tolerated Well [See Physician Procedure note for Specifics] Pain Scale: 0-10 Numeric [Pain] -Is Patient Pain Free? Yes Musculoskeletal: No Muscle Wasting Neurological: Cranial nerves II-XII grossly intact Psych/Mental Status: Normal Affect Debridement Note Post-Debridement Measurements/Treatment WC - Nurse 2 - General Ulcer CM Notes Start: 04/24/18 10:57 Freq: Status: Active Protocol: Activity Type Activity Date Activity User E-Sign Co-Sign Detail Recorded Client Recorded Date Recorded By Document 04/24/18 11:18 MW [id number] 04/24/18 11:25 MW Document 05/08/18 11:40 MW [id number] 05/08/18 11:43 MW Document 05/15/18 12:04 MW [id number] 05/15/18 12:09 MW 04/24/18 05/08/18 05/15/18 11:18 11:40 12:04 Wound Center Nurse 2 #7- R MATIAS INFERIOR -Time 12:04 -Correct Patient Yes -Correct Side, Site, Position Yes -Correct Procedure Yes -Procedure Performed No -Wound/Ulcer Outcome Not Healed #6- R MATIAS SUPERIOR -Time 12:04 -Correct Patient Yes -Correct Side, Site, Position Yes -Correct Procedure Yes -Procedure Performed No -Wound/Ulcer Outcome Not Healed #5- RT MEDIAL FOOT BUNION -Time 11:19 11:41 -Correct Patient Yes Yes -Correct Side, Site, Position Yes Yes -Correct Procedure Yes Yes -Procedure Performed Yes No -Type of Procedure Debridement -Clinical Debridement Subcutaneous -Post Debridement Size (cm) - Length 0.3 0 -Post Debridement Size (cm) - Width 0.2 0 -Post Debridement Size (cm) - Depth 0.1 0 -Total Square Cm 0.06 0 -Wound/Ulcer Outcome Not Healed Healed- Epithelialized -Ulcer Cleansing Rinsed/ Irrigated with Saline -Foul Odor after Cleansing No -Bioengineered Tissue No -Bleeding Controlled with Pressure -Offloading No -Treatment Response Procedure Tolerated Well #4- LT CALF POST TRAUMA -Time 11:20 11:41 12:05 -Correct Patient Yes Yes Yes -Correct Side, Site, Position Yes Yes Yes -Correct Procedure Yes Yes Yes -Procedure Performed Yes Yes Yes -Type of Procedure Debridement Debridement Debridement -Clinical Debridement Subcutaneous Subcutaneous Subcutaneous -Post Debridement Size (cm) - Length 1.0 0.7 0.4 -Post Debridement Size (cm) - Width 1.0 0.5 0.5 -Post Debridement Size (cm) - Depth 0.2 0.2 0.1 -Total Square Cm 1.00 0.35 0.20 -Wound/Ulcer Outcome Not Healed Not Healed Not Healed -Ulcer Cleansing Rinsed/ Rinsed/ Rinsed/ Irrigated with Irrigated with Irrigated with Saline Saline Saline -Foul Odor after Cleansing No No No -Bioengineered Tissue No No No -Bleeding Controlled with Pressure Pressure Pressure -Offloading No No No -Treatment Response Procedure Procedure Procedure Tolerated Well Tolerated Well Tolerated Well Pain Scale: 0-10 Numeric Is Patient Pain Free? Yes Yes Yes Wound debrided: Left lower extremity Wound Grade/Stage: Stage II Type of Debridement: Excisional debridement Anesthesia Used: 4% Lidocaine Solution Depth: Down to and including healthy tissue, in the subcutaneous layer Percentage of wound debrided: 100 Instrument Used: 3mm curette Tissue Removed: Slough and devitalized tissue Severity: Fat Layer Exposed Amount of bleeding with debridement: Mild Bleeding Controlled with: Pressure Patient tolerated procedure well Assessment/Plan Active Problems (Last Reviewed 05/15/18 @ 08:07 by Ting Rangel) Wound of left lower extremity (Chronic) Traumatic penetrating with fat layer exposed. Skin ulcer of right great toe with fat layer exposed (Acute) Venous stasis (Acute) PVD (peripheral vascular disease) (Chronic) Assessment: Traumatic, penetrating left lower extremity wound with fat layer exposed. Right great toe ulcer. Hallux deformity right great toe. History of tobacco abuse. Plan: Improving. No new concerns. Debridement done as documented above. Procedure was well-tolerated. Continue Fibracol daily with Adaptic over top to left lower extremity. Continue ABD/barrier dressing over right great toe. Single layer Tubigrip for edema management. Advised to elevate lower extremities when seated and in bed. Increased protein intake recommended. She was also asked to follow-up with her vascular surgeon. All her questions were answered and she was advised to call with any further questions or concerns. Follow-up in 1 week. This note was generated with [employer] dictation software. It may contain incorrect words, spelling, and punctuation that were not noted in checking the note before signing.
--- NOTE | 2018-05-15 12:14 | PN.PCM_ITS ---
(1) Skin ulcer of right great toe with fat layer exposed Status: Acute Current Visit: Yes Code(s): L97.512 - Non-pressure chronic ulcer of other part of right foot with fat layer exposed (2) Venous stasis Status: Acute Current Visit: Yes Code(s): I87.8 - Other specified disorders of veins (3) Wound of left lower extremity Status: Chronic Current Visit: Yes Code(s): S81.802A - Unspecified open wound, left lower leg, initial encounter Comment: Traumatic penetrating with fat layer exposed. (4) CHF (congestive heart failure) Status: Chronic Current Visit: No Qualifiers: Heart failure type: systolic Heart failure chronicity: chronic Qualified Code(s): I50.22 - Chronic systolic (congestive) heart failure Code(s): I50.9 - Heart failure, unspecified (5) PVD (peripheral vascular disease) Status: Chronic Current Visit: Yes Code(s): I73.9 - Peripheral vascular disease, unspecified Type of Wound Chief Complaint: Left lower extremity wound. History of Wound: Ms. Lim is a 72yo who presented her to the wound center due to nonhealing left lower extremity wound. Sustained trauma to the left lower extremity on 18 March while transferring to a commode during her last hospital stay. She has been managed at home by home health care without any significant improvement and so it was recommended that she follow-up here. She denies any significant drainage. Denies chills, fever otherwise feeling of unwell. She states that she quit smoking 4 days ago and is currently on a nicotine patch. Progress of Wound: Left lower extremity wound is stable. New bilateral superficial ulcers. Patient declines management. - Physical Exam Vital Signs Temp Pulse Resp BP 96.6 F L 87 20 H 141/49 H 05/15/18 10:59 05/15/18 10:59 05/15/18 10:59 05/15/18 10:59 General: Alert, Oriented x3, Cooperative, No apparent distress HEENT: Atraumatic, Normocephalic Oral: Moist Mucosa Neck: Supple Lungs: Normal air movement Abdomen: Non Tender Extremities: No cyanosis, Edema Skin: Ulcer/ Wound Wound Measurements and Assessment WC - Nurse 1 - General Ulcer Measurement Start: 04/24/18 10:57 Freq: Status: Active Protocol: Activity Type Activity Date Activity User E-Sign Co-Sign Detail Recorded Client Recorded Date Recorded By Document 05/15/18 10:59 [facility] [id number] 05/15/18 11:12 [facility] 05/15/18 10:59 Wound Center Nurse 1 [Ulcer Assessment] #7- R MATIAS INFERIOR -Combined with other wound No -Current Size (cm) - Length 0.6 -Current Size (cm) - Width 0.8 -Current Size (cm) - Depth 0.2 -Total Square Cm 0.48 -Date of Last Picture (Recall this 05/15/18 field) -Photo Taken Yes -Epithelialization None Present -Tunneling No -Undermining/Tunneling No -Circular Undermining No -Exudate Amt Small -Exudate Type Serous -Wound Margin Flat & Intact -Granulation Amt Medium (34-66%) -Granulation Quality [place] -Slough/Fibrin Yes -Necrosis Amt Medium (34-66%) -Necrotic Tissue Type Adherent Slough -Texture (Ashley-wound Skin Appearance) Assessed Scarring -Moisture (Ashley-wound Skin Appearance Assessed ) -Color (Ashley-wound Skin Appearance) Assessed Erythema -Temperature (Ashley-wound Skin No Abnormality Appearance) (Pt Warm) -Tenderness on Palpation (Ashley-wound No Skin Appearance) -Ulcer Cleansing Rinsed/ Irrigated with Saline -Foul Odor after Cleansing No -Anesthetic Used 5% Lidocaine Gel #6- R MATIAS SUPERIOR -Combined with other wound No -Current Size (cm) - Length 0.5 -Current Size (cm) - Width 0.5 -Current Size (cm) - Depth 0.1 -Total Square Cm 0.25 -Date of Last Picture (Recall this 05/15/18 field) -Photo Taken Yes -Epithelialization None Present -Tunneling No -Undermining/Tunneling No -Circular Undermining No -Exudate Amt Small -Exudate Type Serous -Wound Margin Flat & Intact -Granulation Amt Large (67-100%) -Granulation Quality Red -Slough/Fibrin No -Necrosis Amt None Present (0 %) -Structure Exposed None/Limited to Skin Breakdown -Texture (Ashley-wound Skin Appearance) Assessed -Moisture (Ashley-wound Skin Appearance Assessed ) Weeping -Color (Ashley-wound Skin Appearance) Assessed Erythema -Temperature (Ashley-wound Skin No Abnormality Appearance) (Pt Warm) -Tenderness on Palpation (Ashley-wound No Skin Appearance) -Ulcer Cleansing Rinsed/ Irrigated with Saline -Foul Odor after Cleansing No -Anesthetic Used 5% Lidocaine Gel #4- LT CALF POST TRAUMA -Combined with other wound No -Current Size (cm) - Length 0.6 -Current Size (cm) - Width 0.7 -Current Size (cm) - Depth 0.2 -Total Square Cm 0.42 -Date of Last Picture (Recall this 05/15/18 field) -Photo Taken Yes -Epithelialization None Present -Tunneling No -Undermining/Tunneling No -Circular Undermining No -Exudate Amt Small -Exudate Type Serosanguineous -Wound Margin Distinct, Outline Attached -Granulation Amt Small (1-33%) -Granulation Quality Red -Slough/Fibrin Yes -Necrosis Amt Medium (34-66%) -Necrotic Tissue Type Adherent Slough -Texture (Ashley-wound Skin Appearance) Assessed Scarring -Moisture (Ashley-wound Skin Appearance Assessed ) Dry/Scaly -Color (Ashley-wound Skin Appearance) Assessed -Temperature (Ashley-wound Skin No Abnormality Appearance) (Pt Warm) -Tenderness on Palpation (Ashley-wound No Skin Appearance) -Ulcer Cleansing Rinsed/ Irrigated with Saline -Foul Odor after Cleansing No -Anesthetic Used 5% Lidocaine Gel [Edema Assessment] -Right Calf (cm) 34.4 -Right Ankle (cm) 18.5 -Left Calf (cm) 34 -Left Ankle (cm) 18 WC - Nurse 2 - General Ulcer CM Notes Start: 04/24/18 10:57 Freq: Status: Active Protocol: Activity Type Activity Date Activity User E-Sign Co-Sign Detail Recorded Client Recorded Date Recorded By Document 05/15/18 12:04 MW [id number] 05/15/18 12:09 MW 05/15/18 12:04 Wound Center Nurse 2 [Procedure/Treatment] #7- R MATIAS INFERIOR -Time 12:04 -Correct Patient Yes -Correct Side, Site, Position Yes -Correct Procedure Yes -Procedure Performed No -Wound/Ulcer Outcome Not Healed #6- R MATIAS SUPERIOR -Time 12:04 -Correct Patient Yes -Correct Side, Site, Position Yes -Correct Procedure Yes -Procedure Performed No -Wound/Ulcer Outcome Not Healed #4- LT CALF POST TRAUMA -Time 12:05 -Correct Patient Yes -Correct Side, Site, Position Yes -Correct Procedure Yes -Procedure Performed Yes -Type of Procedure Debridement -Clinical Debridement Subcutaneous -Post Debridement Size (cm) - Length 0.4 -Post Debridement Size (cm) - Width 0.5 -Post Debridement Size (cm) - Depth 0.1 -Total Square Cm 0.20 -Wound/Ulcer Outcome Not Healed -Ulcer Cleansing Rinsed/ Irrigated with Saline -Foul Odor after Cleansing No -Bioengineered Tissue No -Bleeding Controlled with Pressure -Offloading No -Treatment Response Procedure Tolerated Well [See Physician Procedure note for Specifics] Pain Scale: 0-10 Numeric [Pain] -Is Patient Pain Free? Yes Musculoskeletal: No Muscle Wasting Neurological: Cranial nerves II-XII grossly intact Psych/Mental Status: Normal Affect Debridement Note Post-Debridement Measurements/Treatment WC - Nurse 2 - General Ulcer CM Notes Start: 04/24/18 10:57 Freq: Status: Active Protocol: Activity Type Activity Date Activity User E-Sign Co-Sign Detail Recorded Client Recorded Date Recorded By Document 04/24/18 11:18 MW [id number] 04/24/18 11:25 MW Document 05/08/18 11:40 MW [id number] 05/08/18 11:43 MW Document 05/15/18 12:04 MW [id number] 05/15/18 12:09 MW 04/24/18 05/08/18 05/15/18 11:18 11:40 12:04 Wound Center Nurse 2 #7- R MATIAS INFERIOR -Time 12:04 -Correct Patient Yes -Correct Side, Site, Position Yes -Correct Procedure Yes -Procedure Performed No -Wound/Ulcer Outcome Not Healed #6- R MATIAS SUPERIOR -Time 12:04 -Correct Patient Yes -Correct Side, Site, Position Yes -Correct Procedure Yes -Procedure Performed No -Wound/Ulcer Outcome Not Healed #5- RT MEDIAL FOOT BUNION -Time 11:19 11:41 -Correct Patient Yes Yes -Correct Side, Site, Position Yes Yes -Correct Procedure Yes Yes -Procedure Performed Yes No -Type of Procedure Debridement -Clinical Debridement Subcutaneous -Post Debridement Size (cm) - Length 0.3 0 -Post Debridement Size (cm) - Width 0.2 0 -Post Debridement Size (cm) - Depth 0.1 0 -Total Square Cm 0.06 0 -Wound/Ulcer Outcome Not Healed Healed- Epithelialized -Ulcer Cleansing Rinsed/ Irrigated with Saline -Foul Odor after Cleansing No -Bioengineered Tissue No -Bleeding Controlled with Pressure -Offloading No -Treatment Response Procedure Tolerated Well #4- LT CALF POST TRAUMA -Time 11:20 11:41 12:05 -Correct Patient Yes Yes Yes -Correct Side, Site, Position Yes Yes Yes -Correct Procedure Yes Yes Yes -Procedure Performed Yes Yes Yes -Type of Procedure Debridement Debridement Debridement -Clinical Debridement Subcutaneous Subcutaneous Subcutaneous -Post Debridement Size (cm) - Length 1.0 0.7 0.4 -Post Debridement Size (cm) - Width 1.0 0.5 0.5 -Post Debridement Size (cm) - Depth 0.2 0.2 0.1 -Total Square Cm 1.00 0.35 0.20 -Wound/Ulcer Outcome Not Healed Not Healed Not Healed -Ulcer Cleansing Rinsed/ Rinsed/ Rinsed/ Irrigated with Irrigated with Irrigated with Saline Saline Saline -Foul Odor after Cleansing No No No -Bioengineered Tissue No No No -Bleeding Controlled with Pressure Pressure Pressure -Offloading No No No -Treatment Response Procedure Procedure Procedure Tolerated Well Tolerated Well Tolerated Well Pain Scale: 0-10 Numeric Is Patient Pain Free? Yes Yes Yes Wound debrided: Left lower extremity Wound Grade/Stage: Stage II Type of Debridement: Excisional debridement Anesthesia Used: 4% Lidocaine Solution Depth: Down to and including healthy tissue, in the subcutaneous layer Percentage of wound debrided: 100 Instrument Used: 3mm curette Tissue Removed: Slough and devitalized tissue Severity: Fat Layer Exposed Amount of bleeding with debridement: Mild Bleeding Controlled with: Pressure Patient tolerated procedure well Assessment/Plan Active Problems (Last Reviewed 05/15/18 @ 08:07 by Ting Rangel) Wound of left lower extremity (Chronic) Traumatic penetrating with fat layer exposed. Skin ulcer of right great toe with fat layer exposed (Acute) Venous stasis (Acute) PVD (peripheral vascular disease) (Chronic) Assessment: Traumatic, penetrating left lower extremity wound with fat layer exposed. Right great toe ulcer. Hallux deformity right great toe. History of tobacco abuse. Plan: Improving. No new concerns. Debridement done as documented above. Procedure was well-tolerated. Continue Fibracol daily with Adaptic over top to left lower extremity. Continue ABD/barrier dressing over right great toe. Single layer Tubigrip for edema management. Advised to elevate lower extremities when seated and in bed. Increased protein intake recommended. She was also asked to follow-up with her vascular surgeon. All her questions were answered and she was advised to call with any further questions or concerns. Follow-up in 1 week. This note was generated with [employer] dictation software. It may contain incorrect words, spelling, and punctuation that were not noted in checking the note before signing.
== END 2018-05-19 23:59 ==
LOC: WC 11:00
PROVIDERS: Family Provider Family Medicine; PCP Family Medicine; Visit Provider Internal Medicine
DX: S81.832A Puncture wound without foreign body, left lower leg, initial encounter (principal); X58.XXXA Exposure to other specified factors, initial encounter; I73.9 Peripheral vascular disease, unspecified; Z87.891 Personal history of nicotine dependence; J44.9 Chronic obstructive pulmonary disease, unspecified; I50.9 Heart failure, unspecified; Z79.899 Other long term (current) drug therapy; L97.512 Non-pressure chronic ulcer of other part of right foot with fat layer exposed
CPT/HCPCS: 11042

== ENCOUNTER 2018-05-29 10:15 | Outpatient (RCR) | payer MEDICARE, SELFPAY ==
[2018-05-20 00:20] VITALS: BP 141/49; PULSE 87; RESP 20; TEMP 35.9
[2018-05-22 11:28] VITALS: BP 106/52; PULSE 63; RESP 20; TEMP 36.1; BMI 37.8
--- NOTE | 2018-05-22 12:45 | PN.PCM_ITS ---
(1) DM (diabetes mellitus) with complications Status: Chronic Current Visit: Yes Code(s): E11.8 - Type 2 diabetes mellitus with unspecified complications (2) PVD (peripheral vascular disease) Status: Chronic Current Visit: Yes Code(s): I73.9 - Peripheral vascular disease, unspecified (3) Wound of left lower extremity Status: Chronic Current Visit: Yes Code(s): S81.802A - Unspecified open wound, left lower leg, initial encounter Comment: Traumatic penetrating with fat layer exposed. Type of Wound Chief Complaint: Left lower extremity wound. History of Wound: Ms. Lim is a 72yo who presented her to the wound center due to nonhealing left lower extremity wound. Sustained trauma to the left lower extremity on 18 March while transferring to a commode during her last hospital stay. She has been managed at home by home health care without any significant improvement and so it was recommended that she follow-up here. She denies any significant drainage. Denies chills, fever otherwise feeling of unwell. She states that she quit smoking 4 days ago and is currently on a nicotine patch. Progress of Wound: Improving. No new concerns at this time. - Physical Exam Vital Signs Temp Pulse Resp BP 97 F L 63 20 H 106/52 L 05/22/18 11:28 05/22/18 11:28 05/22/18 11:28 05/22/18 11:28 General: Alert, Oriented x3, Cooperative, No apparent distress HEENT: Atraumatic, Normocephalic Oral: Moist Mucosa Neck: Supple Lungs: Normal air movement Abdomen: Non Tender, Obese Extremities: No cyanosis, Edema Skin: Ulcer/ Wound Wound Measurements and Assessment WC - Nurse 1 - General Ulcer Measurement Start: 05/22/18 11:28 Freq: Status: Active Protocol: Activity Type Activity Date Activity User E-Sign Co-Sign Detail Recorded Client Recorded Date Recorded By Document 05/22/18 11:28 DL [id number] 05/22/18 11:35 DL 05/22/18 11:28 Wound Center Nurse 1 [Ulcer Assessment] #7- R MATIAS INFERIOR -Photo Taken No -Granulation Quality Red -Structure Exposed N/A -Texture (Ashley-wound Skin Appearance) Scarring -Moisture (Ashley-wound Skin Appearance No Abnormality ) Assessed -Color (Ashley-wound Skin Appearance) Hemosiderin Staining Rubor -Foul Odor after Cleansing No #4- LT CALF POST TRAUMA -Current Size (cm) - Length 0.2 -Current Size (cm) - Width 0.2 -Current Size (cm) - Depth 0.1 -Total Square Cm 0.04 -Photo Taken No -Epithelialization Large 67-100% -Exudate Amt None Present -Wound Margin Flat & Intact -Granulation Amt Small (1-33%) -Granulation Quality [place] -Necrosis Amt Small (1-33%) -Necrotic Tissue Type Adherent Slough -Structure Exposed N/A -Texture (Ashley-wound Skin Appearance) Scarring -Moisture (Ashley-wound Skin Appearance No Abnormality ) -Color (Ashley-wound Skin Appearance) Hemosiderin Staining -Temperature (Ashley-wound Skin No Abnormality Appearance) (Pt Warm) -Tenderness on Palpation (Ashley-wound No Skin Appearance) -Ulcer Cleansing Rinsed/ Irrigated with Saline -Foul Odor after Cleansing No -Anesthetic Used 4% Lidocaine Solution [Edema Assessment] -Left Calf (cm) 31.5 -Left Ankle (cm) 17.5 WC - Nurse 2 - General Ulcer CM Notes Start: 05/22/18 11:28 Freq: Status: Active Protocol: Activity Type Activity Date Activity User E-Sign Co-Sign Detail Recorded Client Recorded Date Recorded By Document 05/22/18 11:54 MW [id number] 05/22/18 11:58 MW 05/22/18 11:54 Wound Center Nurse 2 [Procedure/Treatment] #7- R MATIAS INFERIOR -Time 11:55 -Correct Patient Yes -Correct Side, Site, Position Yes -Correct Procedure Yes -Procedure Performed No -Post Debridement Size (cm) - Length 0 -Post Debridement Size (cm) - Width 0 -Post Debridement Size (cm) - Depth 0 -Total Square Cm 0 -Wound/Ulcer Outcome Healed- Epithelialized #6- R MATIAS SUPERIOR -Time 11:55 -Correct Patient Yes -Correct Side, Site, Position Yes -Correct Procedure Yes -Procedure Performed No -Post Debridement Size (cm) - Length 0 -Post Debridement Size (cm) - Width 0 -Post Debridement Size (cm) - Depth 0 -Total Square Cm 0 -Wound/Ulcer Outcome Healed- Epithelialized #4- LT CALF POST TRAUMA -Time 11:54 -Correct Patient Yes -Correct Side, Site, Position Yes -Correct Procedure Yes -Procedure Performed Yes -Type of Procedure Debridement -Clinical Debridement Selective -Post Debridement Size (cm) - Length 0.3 -Post Debridement Size (cm) - Width 0.2 -Post Debridement Size (cm) - Depth 0.1 -Total Square Cm 0.06 -Wound/Ulcer Outcome Not Healed -Ulcer Cleansing Rinsed/ Irrigated with Saline -Foul Odor after Cleansing No -Bioengineered Tissue No -Bleeding Controlled with Pressure -Offloading No -Treatment Response Procedure Tolerated Well [See Physician Procedure note for Specifics] Pain Scale: 0-10 Numeric [Pain] -Is Patient Pain Free? Yes Musculoskeletal: No Muscle Wasting Neurological: Cranial nerves II-XII grossly intact Psych/Mental Status: Normal Affect Debridement Note Post-Debridement Measurements/Treatment WC - Nurse 2 - General Ulcer CM Notes Start: 05/22/18 11:28 Freq: Status: Active Protocol: Activity Type Activity Date Activity User E-Sign Co-Sign Detail Recorded Client Recorded Date Recorded By Document 05/22/18 11:54 MW [id number] 05/22/18 11:58 MW 05/22/18 11:54 Wound Center Nurse 2 #7- R MATIAS INFERIOR -Time 11:55 -Correct Patient Yes -Correct Side, Site, Position Yes -Correct Procedure Yes -Procedure Performed No -Post Debridement Size (cm) - Length 0 -Post Debridement Size (cm) - Width 0 -Post Debridement Size (cm) - Depth 0 -Total Square Cm 0 -Wound/Ulcer Outcome Healed- Epithelialized #6- R MATIAS SUPERIOR -Time 11:55 -Correct Patient Yes -Correct Side, Site, Position Yes -Correct Procedure Yes -Procedure Performed No -Post Debridement Size (cm) - Length 0 -Post Debridement Size (cm) - Width 0 -Post Debridement Size (cm) - Depth 0 -Total Square Cm 0 -Wound/Ulcer Outcome Healed- Epithelialized #4- LT CALF POST TRAUMA -Time 11:54 -Correct Patient Yes -Correct Side, Site, Position Yes -Correct Procedure Yes -Procedure Performed Yes -Type of Procedure Debridement -Clinical Debridement Selective -Post Debridement Size (cm) - Length 0.3 -Post Debridement Size (cm) - Width 0.2 -Post Debridement Size (cm) - Depth 0.1 -Total Square Cm 0.06 -Wound/Ulcer Outcome Not Healed -Ulcer Cleansing Rinsed/ Irrigated with Saline -Foul Odor after Cleansing No -Bioengineered Tissue No -Bleeding Controlled with Pressure -Offloading No -Treatment Response Procedure Tolerated Well Pain Scale: 0-10 Numeric Is Patient Pain Free? Yes Wound debrided: Left lower extremity Wound Grade/Stage: Stage II Type of Debridement: Selective debridement Anesthesia Used: 4% Lidocaine Solution Depth: Down to and including healthy tissue Percentage of wound debrided: 100 Tissue Removed: Devitalized tissue Severity: Limited To Skin Breakdown Amount of bleeding with debridement: Mild Bleeding Controlled with: Pressure Assessment/Plan Active Problems (Last Reviewed 05/15/18 @ 08:07 by Ting Rangel) Wound of left lower extremity (Chronic) Traumatic penetrating with fat layer exposed. DM (diabetes mellitus) with complications (Chronic) PVD (peripheral vascular disease) (Chronic) Assessment: Traumatic, penetrating left lower extremity wound with fat layer exposed. Right great toe ulcer. Hallux deformity right great toe. History of tobacco abuse. Plan: Improving. No new concerns. Debridement done as documented above. Procedure was well-tolerated. Continue Fibracol daily with Adaptic over top to left lower extremity. Continue ABD/barrier dressing over right great toe. Single layer Tubigrip for edema management. Advised to elevate lower extrem ities when seated and in bed. Increased protein intake recommended. All her questions were answered and she was advised to call with any further questions or concerns. Follow-up in 1 week. This note was generated with [employer] dictation software. It may contain incorrect words, spelling, and punctuation that were not noted in checking the note before signing.
[2018-05-29 10:21] VITALS: BP 107/73; PULSE 83; RESP 18; TEMP 36.2; BMI 37.8
--- NOTE | 2018-05-29 10:33 | PN.PCM_ITS ---
(1) DM (diabetes mellitus) with complications Status: Chronic Current Visit: Yes Code(s): E11.8 - Type 2 diabetes mellitus with unspecified complications (2) PVD (peripheral vascular disease) Status: Chronic Current Visit: Yes Code(s): I73.9 - Peripheral vascular disease, unspecified (3) Wound of left lower extremity Status: Chronic Current Visit: Yes Code(s): S81.802A - Unspecified open wound, left lower leg, initial encounter Comment: Traumatic penetrating with fat layer exposed. Type of Wound Chief Complaint: Left lower extremity wound. History of Wound: Ms. Lim is a 72yo who presented her to the wound center due to nonhealing left lower extremity wound. Sustained trauma to the left lower extremity on 18 March while transferring to a commode during her last hospital stay. She has been managed at home by home health care without any significant improvement and so it was recommended that she follow-up here. She denies any significant drainage. Denies chills, fever otherwise feeling of unwell. She states that she quit smoking 4 days ago and is currently on a nicotine patch. Progress of Wound: Healed. - Physical Exam Vital Signs Temp Pulse Resp BP 97.2 F L 83 18 107/73 05/29/18 10:21 05/29/18 10:21 05/29/18 10:21 05/29/18 10:21 General: Alert, Oriented x3, Cooperative, No apparent distress HEENT: Atraumatic, Normocephalic Oral: Moist Mucosa Neck: Supple Abdomen: Non Tender, Obese Extremities: No cyanosis, Edema Wound Measurements and Assessment WC - Nurse 1 - General Ulcer Measurement Start: 05/22/18 11:28 Freq: Status: Active Protocol: Activity Type Activity Date Activity User E-Sign Co-Sign Detail Recorded Client Recorded Date Recorded By Document 05/29/18 10:21 [facility] [id number] 05/29/18 10:24 [facility] 05/29/18 10:21 Wound Center Nurse 1 [Ulcer Assessment] #4- LT CALF POST TRAUMA -Combined with other wound No -Current Size (cm) - Length 0.1 -Current Size (cm) - Width 0.1 -Current Size (cm) - Depth 0.1 -Total Square Cm 0.01 -Date of Last Picture (Recall this 05/29/18 field) -Photo Taken Yes -Epithelialization Large 67-100% -Tunneling No -Undermining/Tunneling No -Circular Undermining No -Exudate Amt None Present -Texture (Ashley-wound Skin Appearance) Assessed Scarring -Moisture (Ashley-wound Skin Appearance Dry/Scaly ) -Color (Ashley-wound Skin Appearance) Assessed -Temperature (Ashley-wound Skin No Abnormality Appearance) (Pt Warm) -Tenderness on Palpation (Ashley-wound No Skin Appearance) -Ulcer Cleansing Rinsed/ Irrigated with Saline -Foul Odor after Cleansing No -Anesthetic Used 5% Lidocaine Gel [Edema Assessment] -Lower Limb Edema Present Yes -Left Calf (cm) 33 -Left Ankle (cm) 19 Musculoskeletal: No Muscle Wasting Neurological: Cranial nerves II-XII grossly intact Psych/Mental Status: Normal Affect Debridement Note Post-Debridement Measurements/Treatment WC - Nurse 2 - General Ulcer CM Notes Start: 05/22/18 11:28 Freq: Status: Active Protocol: Activity Type Activity Date Activity User E-Sign Co-Sign Detail Recorded Client Recorded Date Recorded By Document 05/22/18 11:54 MW [id number] 05/22/18 11:58 MW 05/22/18 11:54 Wound Center Nurse 2 #7- R MATIAS INFERIOR -Time 11:55 -Correct Patient Yes -Correct Side, Site, Position Yes -Correct Procedure Yes -Procedure Performed No -Post Debridement Size (cm) - Length 0 -Post Debridement Size (cm) - Width 0 -Post Debridement Size (cm) - Depth 0 -Total Square Cm 0 -Wound/Ulcer Outcome Healed- Epithelialized #6- R MATIAS SUPERIOR -Time 11:55 -Correct Patient Yes -Correct Side, Site, Position Yes -Correct Procedure Yes -Procedure Performed No -Post Debridement Size (cm) - Length 0 -Post Debridement Size (cm) - Width 0 -Post Debridement Size (cm) - Depth 0 -Total Square Cm 0 -Wound/Ulcer Outcome Healed- Epithelialized #4- LT CALF POST TRAUMA -Time 11:54 -Correct Patient Yes -Correct Side, Site, Position Yes -Correct Procedure Yes -Procedure Performed Yes -Type of Procedure Debridement -Clinical Debridement Selective -Post Debridement Size (cm) - Length 0.3 -Post Debridement Size (cm) - Width 0.2 -Post Debridement Size (cm) - Depth 0.1 -Total Square Cm 0.06 -Wound/Ulcer Outcome Not Healed -Ulcer Cleansing Rinsed/ Irrigated with Saline -Foul Odor after Cleansing No -Bioengineered Tissue No -Bleeding Controlled with Pressure -Offloading No -Treatment Response Procedure Tolerated Well Pain Scale: 0-10 Numeric Is Patient Pain Free? Yes No debridement was completed today Assessment/Plan Active Problems (Last Reviewed 05/15/18 @ 08:07 by Ting Rangel) Wound of left lower extremity (Chronic) Traumatic penetrating with fat layer exposed. DM (diabetes mellitus) with complications (Chronic) PVD (peripheral vascular disease) (Chronic) Assessment: Traumatic, penetrating left lower extremity wound with fat layer exposed. Right great toe ulcer. Hallux deformity right great toe. History of tobacco abuse. Plan: Healed. No debridement completed today. Continue adaptic over area x 1 week. Continue ABD/barrier dressing over right great toe. Continue Single layer Tubigrip for edema management. Advised to elevate lower extremities when seated and in bed. Increased protein intake recommended. All her questions were answ ered and she was advised to call with any further questions or concerns. Discharged from the wound center. This note was generated with [employer] dictation software. It may contain incorrect words, spelling, and punctuation that were not noted in checking the note before signing.
== END 2018-06-18 23:59 ==
LOC: WC 10:15
PROVIDERS: Family Provider Family Medicine; PCP Family Medicine; Visit Provider Internal Medicine
DX: S81.832A Puncture wound without foreign body, left lower leg, initial encounter (principal); X58.XXXA Exposure to other specified factors, initial encounter; I73.9 Peripheral vascular disease, unspecified; E11.9 Type 2 diabetes mellitus without complications; Z87.891 Personal history of nicotine dependence
CPT/HCPCS: 97597; 99213; G0463

== ENCOUNTER → 2018-06-05 20:00 | Outpatient (CLI) | payer MEDICARE, SELFPAY ==
[2018-05-15 10:59] VITALS: BMI 37.8
== END ==
PROVIDERS: Family Provider Family Medicine; PCP Family Medicine; Referring Provider Internal Medicine Critical Care Medicine; Visit Provider Internal Medicine Critical Care Medicine
DX: G47.33 Obstructive sleep apnea (adult) (pediatric) (principal); I49.3 Ventricular premature depolarization
CPT/HCPCS: 95810

== ENCOUNTER → 2018-07-08 | Outpatient (CLI) | payer MEDICARE, SELFPAY | END | disposition home or self-care (01) | LOC: SL 21:21 | PROVIDERS: Family Provider Family Medicine; PCP Family Medicine; Referring Provider Nurse Practitioner Acute Care; Visit Provider Nurse Practitioner Acute Care | DX: G47.33 Obstructive sleep apnea (adult) (pediatric) (principal) | CPT/HCPCS: 95811 ==

== ENCOUNTER → 2018-08-12 | Outpatient (CLI) | payer MEDICARE, SELFPAY ==
[2018-05-15 09:05] VITALS: BMI 37.8
--- NOTE | 2018-08-12 16:08 | PFTCOMP ---
COMPLETE PULMONARY FUNCTION TEST INTERPRETATION Brief HPI: Patient is a 73 year old female, currently under the care of myself, who presents to [facility] for complete pulmonary function tests secondary to diagnosis of COPD. Respiratory therapist reports good effort and reproducible results. Interpretation: Forced expiration spirometry shows a moderately severe large airways obstructive ventilatory defect with an FEV1 of 54% predicted. There is no significant bronchodilator response by strict ATS criteria. Spirograms are of good quality and plateau slowly, indicating slowly emptying areas of the lungs. The respiratory flow volume loop shows decreased expiratory flow rates at all lung volumes consistent with airway obstruction. Lung volumes by body plethysmography show a normal total lung capacity at 4.34 L, 112% predicted. FRC and RV are elevated out of proportion. Lung volume measurements are consistent with air-trapping. Diffusion capacity by carbon monoxide is decreased at 37% predicted. The airway resistance is elevated. No previous pulmonary function tests were available for review. Impression: Irreversible moderately severe large airways obstructive ventilatory defect resulting in air trapping and a symmetric reduction diffusion capacity, and a pattern consistent with COPD.
== END | disposition home or self-care (01) ==
LOC: PSN 12:36
PROVIDERS: Family Provider Family Medicine; PCP Family Medicine; Referring Provider Internal Medicine Critical Care Medicine; Visit Provider Internal Medicine Critical Care Medicine
DX: J44.9 Chronic obstructive pulmonary disease, unspecified (principal)
CPT/HCPCS: 94060; 94726; 94729

== ENCOUNTER → 2018-08-13 | Outpatient (CLI) | payer MEDICARE, SELFPAY ==
[2018-05-15 09:05] VITALS: BMI 37.8
[2018-08-13 12:54] VITALS: PULSE 104; PULSE 107; PULSE 109; PULSE 85; PULSE 90; PULSE 93; O2SAT 90; O2SAT 91; O2SAT 92; O2SAT 94; O2SAT 95
--- NOTE | 2018-08-13 13:00 | CPS ---
PT ARRIVED TO TEST ON ROOM AIR. PATIENT STATES SHE DOES HAVE HOME OXYGEN AND HER SPO2 DROPS TO THE 80S. PATIENT ALSO STATES THAT SHE DOES NOT WEAR OXYGEN BECAUSE SHE KNOWS HER LIMITS. ALSO, PATIENT SPO2 DROPPED TO 89% FREQUENTLY BUT PATIENT WOULD NEED TO TAKE A BREAK EACH TIME.
--- NOTE | 2018-08-13 15:24 | PCM.PSN.6M ---
PSN 6 Minute Walk Test - 6 Minute Walk Test 6 Minute Walk Test: 6 Minute Walk Test PSN:6-Minute Walk Test Start: 08/13/18 12:54 Freq: Status: Active Protocol: RESP.6MINW Document 08/13/18 12:54 SMB (Rec: 08/13/18 13:05 SMB [id number]) 6 Minute Walk Test Date Performed 08/13/18 Time Performed 12:34 Height 4 ft 11 in Weight: 88.451 kg Weight in Pounds 195.[address]: Igor Quesada Assistive device used: Cane Pre-test Oxygen Delivery Method Room Air Pulse Ox (%) 94 Pulse Rate (60-100 beats/min) 85 Dyspnea Nacho Scale (0-10) 0 Exertion Nacho Scale (6-20) 11 1st minute Oxygen Delivery Method Room Air Pulse Ox (%) 92 Pulse Rate (60-100 beats/min) 90 2nd minute Oxygen Delivery Method Room Air Pulse Ox (%) 91 Pulse Rate (60-100 beats/min) 93 3rd minute Oxygen Delivery Method Room Air Pulse Ox (%) 91 Pulse Rate (60-100 beats/min) 93 Number of Rests Taken 2 4th minute Oxygen Delivery Method Room Air Pulse Ox (%) 91 Pulse Rate (60-100 beats/min) 104 H Number of Rests Taken 1 5th minute Oxygen Delivery Method Room Air Pulse Ox (%) 90 Pulse Rate (60-100 beats/min) 109 H Number of Rests Taken 1 6th minute Oxygen Delivery Method Room Air Pulse Ox (%) 91 Pulse Rate (60-100 beats/min) 107 H Number of Rests Taken 1 Post-test Oxygen Delivery Method Room Air Pulse Ox (%) 95 Pulse Rate (60-100 beats/min) 90 Dyspnea Nacho Scale (0-10) 4 Exertion Nacho Scale (6-20) 13 Full Laps Walked 6 Partial Lap, Number of Tiles Walked 12 Total Distance Walked (ft) 366 08/13/18 13:00 Cardiopulmonary Services by Gisella Castillo PT ARRIVED TO TEST ON ROOM AIR. PATIENT STATES SHE DOES HAVE HOME OXYGEN AND HER SPO2 DROPS TO THE 80S. PATIENT ALSO STATES THAT SHE DOES NOT WEAR OXYGEN BECAUSE SHE KNOWS HER LIMITS. ALSO, PATIENT SPO2 DROPPED TO 89% FREQUENTLY BUT PATIENT WOULD NEED TO TAKE A BREAK EACH TIME. Initialized on 08/13/18 13:00 - END OF NOTE - Interpretation Interpretation: The patient was able to ambulate only 360 feet over the course of 6 minutes on room air with the assistance of a cane and 6 breaks. Respiratory had reported the patient took a break whenever saturations at 89%. These findings are consistent with a respiratory limitation exercise tolerance. - Recommendations Recommendations: No supplemental oxygen is indicated at this time. However, minimal distance traveled limits sensitivity for hypoxemia.
== END | disposition home or self-care (01) ==
LOC: PSN 12:24
PROVIDERS: Family Provider Family Medicine; PCP Family Medicine; Referring Provider Internal Medicine Critical Care Medicine; Visit Provider Internal Medicine Critical Care Medicine
DX: J44.9 Chronic obstructive pulmonary disease, unspecified (principal)
CPT/HCPCS: 94618

== ENCOUNTER → 2018-12-02 14:29 | Outpatient (CLI) | payer MEDICARE, SELFPAY ==
[2018-12-02 08:28] VITALS: BMI 41.5
[2018-12-02 15:49] LABS: Hematocrit 42.9 % (37-47); Hemoglobin 13.7 g/dL (12.0-15.0); Mean Corp Hgb Conc 31.9 g/dL (32-36); Mean Corpuscular Hgb 31.6 pg (27.0-32.0); Mean Corpuscular Volume 98.8 fL (81-99); Mean Platelet Vol. 9.4 fl (6.2-12.0); Platelet Count 341 K/mm3 (150-450); RBC Distribution Width CV 13.4 % (11.6-14.6); RBC Distribution Width SD 49.1 fl (35.1-43.9); Red Blood Count 4.34 M/mm3 (4.2-5.4); White Blood Count 13.1 K/mm3 (4.4-11.0)
[2018-12-02 16:31] LABS: Ferritin 56 ng/mL (8-252); Iron 88 ug/dL (50-170); Iron Binding Capacity,Total 307 ug/dL (250-450); PERCENT IRON SATURATION 28.7 % (15.0-55.0)
== END ==
PROVIDERS: Family Provider Family Medicine; PCP Family Medicine; Referring Provider Nurse Practitioner Acute Care; Visit Provider Nurse Practitioner Acute Care
DX: G25.71 Drug induced akathisia (principal); I50.9 Heart failure, unspecified
CPT/HCPCS: 36415; 82728; 83540; 83550; 85027